=== PATIENT | female | born 1955 | race Caucasian/White ===

== ENCOUNTER → 2020-06-20 15:43 | Outpatient (CLI) | payer BC, SELFPAY ==
--- NOTE | ~2020-06-20 | CT_ITS ---
EXAMINATION: CT sinus wo con DATE: 06/20/2020 16:02 INDICATION: Congenital perforated nasal septum. TECHNIQUE: Computed tomography (CT) of the paranasal sinuses was performed without intravenous contra st. Iterative reconstruction technique was employed. The dose-length product was 274.70 mGy-cm. COMPARISON: None FINDINGS: The frontal, ethmoid, sphenoid, and right maxillary sinuses are normal. There is a 1.9 x 1. 5 cm mass in inferior left maxillary sinus with dehiscence of the anterior wall of the maxillary sinu s. The mass surrounds the roots of tooth 20. There is a leftward spur of the nasal septum posteriorly . There is a large perforation of the nasal septum. Mike cells are noted bilaterally. The ostiomeat al units are patent. IMPRESSION: 1. Mass in left maxillary sinus. The differential diagnosis includes periapical cyst, odontogenic ker atocyst, and ameloblastoma. 2. Perforation of the nasal septum. Reviewed, dictated and finalized at location A. NESS COMPUTERS TEACHER IMPRESSION: 1. Mass in left maxillary sinus. The differential diagnosis includes periapical cyst, odontogenic keratocyst, and ameloblastoma. 2. Perforation of the nasal septum.
== END ==
PROVIDERS: PCP Nurse Practitioner Psychiatric/Mental Health; Visit Provider Otolaryngology
DX: Q30.3 Congenital perforated nasal septum (principal); R93.0 Abnormal findings on diagnostic imaging of skull and head, not elsewhere classified
CPT/HCPCS: 70486

== ENCOUNTER 2024-10-07 08:42 | Emergency (ER) | payer OTHER, SELFPAY ==
--- OUTSIDE RECORDS SUMMARY | 2024-10-07 08:49 | XMS_ITS | Encounter Summary ---
Author Organization [facility] Address [address] [place] [address] Care Team Providers Care Assistant Professor Of Archaeology Name Role Phone Milagros Hernadez [facility] Primary Care Provider + Prosper Ontiveros MD Unavailable [phone] Theresa Prescott MD Unavailable [phone] Michel Rush MD Unavailable [phone] Liset Summers APRN Primary Care Provider [phone] Thomas Wick Primary Care Provider Encounter Details Date Type Department Care Team (Late st Contact Info) Description 01/29/[address] Message Enc [facility] Medical Group Family & Internal Medicine [address] [address] Milagros Hernadez [facility] [address] [place] [id number] message sent on 01/26/2023 Social History Tobacco Use Types Packs/Day Years Used Date Smoking Tobacco: Former Cigarettes 1.5 20 1 971 - 1990 Smokeless Tobacco: Never Comments:former smoker Alcohol Use Standard Drinks/Week Comments No 0 (1 standard drink = 0.6 oz pur e alcohol) AUDIT-C Answer Date Recorded Frequency of Alcohol Consumption Never 10/18/2018 Average Number of Drinks Not on file 019 Frequency of Binge Drinking Not on file 12/2018 PHQ-2 Answer Date Recorded Patient Health Questionnaire-2 Score 0 10/06/2022 Education Answer Date Recorded What is the highest level of school you have completed or the highest degree you have received? High school graduate 05/03/2019 Comments No Sex and Gender Information Value Date Recorded Sex Assigned at Female 05/03/2019 3:54 PM CDT Legal Sex Female 7:31 PM CDT Gender Identity Female 05/03/2019 3:54 PM CDT Sexual Orientation Straight 05/03/2019 3: 54 PM CDT Occupation Industry Job Start Date Job End Date Not on file Not on file Not on file Not on file COVID-19 Exposure Response Date Recorded In the last 10 days, have yo u been in contact with someone who was confirmed or suspected to have Coronavirus/COVID-19? No / Unsure 01/20/2023 12:36 PM CDT documented as of this encounter Functional Status * RETIRED Are you deaf or do you have serious difficulty hearing Answer Date of Assessment Author Status No 04/09/2021 2:06 PM CDT Activ e * RETIRED Are you blind or do you have serious difficulty seeing, even when wearing glasses? Answer Date of Assessment Author Status No 04/09/2021 2:06 PM CDT Activ e * Do you have serious difficulty walking or climbing stairs? Answer Date of Assessment Author Status No 04/09/2021 2:06 PM ROCKYT Palak Washington RN Active * Do you have difficulty dressing or bathing? Answer Date of Assessment Author Status No 04/09/2021 2:06 PM ROCKYT Palak Washington RN Active * Because of a physical, mental, or emotional condition, do you have difficulty doing errands alone such as visiting a doctor's office or shopping? Answer Date of Assessment Author Status No 04/09/2021 2:06 PM Palak Chand RN Active documented as of this encounter Mental Status * Because of a physical, mental, or emotional condition, do you have serious difficulty concentrating, remembering, or making decisions? Answer Entry Date Author Status No 04/09/2021 2:06 PM Palak Chand RN Active documented in this encounter Progress Notes * LADY Singleton - 01/30/2023 7:36 AM CDT Response sent to patient on 01/29/23. * Puja Johnston MA - 01/29/2023 9:51 AM CDT See mychart message from 01/26 documented in this encounter Plan of Treatment Upcoming Encounters Date Type Department Care Team (Late st Contact Info) Description 10/12/2024 1:20 PM PUMP AND STILL OPERATOR Office Visit [facility] Family & Internal [facility] [address] [place] [address] [place] [address] [place] [address] 11/23/2024 11:45 AM CDT [facility] [address] [place] [address] Michel Rush MD [address] [address] 11/28/2024 7:00 AM CDT Office Visit [facility] Family & Internal [facility] [address] [place] [address] [place] [address] [place] [address] documented as of this encounter Goals Goal Patient Goal Type Associated Problems Recent Progress Patient-Stated? Author Health - patient able to perform ADLs independently General No Evette Campuzano, RN documented as of this encounter Visit Diagnoses Not on filedocumented in this encounter Additional Health Concerns Infection Onset Date Last Indicated Resolved Time COVID-19 Rule Out 09/21/2024 09/21/2024 09/21/2024 7:37 AM PUMP AND STILL OPERATOR Assessment Noted Time PHQ-9 Depression Total Score: 14 023 11:01 AM PUMP AND STILL OPERATOR documented as of this encounter Care Teams Assistant Professor Of Archaeology Relationship Specialty Start Date End Date Milagros Hernadez [facility]- PCP - General Nurse Practitioner Family 10/06/22 05/25/23 Liset Summers APRN [address] [place], [place] [id number] PCP - General NURSE PRACTITIONER 05/26/23 12/13/23 [place] [address] [employer] [place], [place] [id number] PCP - General Physician [employer] 12/14/23 Prosper Ontiveros MD Physician Neurology Psychiatry 10/17/22 03/25/23 Theresa Prescott MD [address] [facility] [address] [place] [phone] RHEUMATOLOGY 10/17/22 Michel Rush MD [facility] [address] [place] [address] Consulting Physician CARDIOVASCULAR DISEASE 10/17/22 documented as of this encounter
--- OUTSIDE RECORDS SUMMARY | 2024-10-07 08:49 | XMS_ITS | Encounter Summary ---
Author Organization [facility] Healthcare Address [address] [place] [address] Care Team Providers Care Window Caser Name Role Phone Therese Anna NP Primary Care Provider [phone] Reason for Visit * Diagnostic Imaging (Routine) - Pending Review Specialty Diagnoses / Procedures Referred By Amelia watts Referred To Contact Procedures Breast Imaging Screening Outside Reference Transcribed Order, Provider Referral ID Status Reason Start Date Expiration Date V isits Requested Visits Authorized [id number] Pending Review 12/13/2023 01/11/2025 1 1 Encounter Details Date Type Department Care Team (Late st Contact Info) Description 07/25/2020 Hospital Encounter [facility] [address] [place] [address] Social History Tobacco Use Types Packs/Day Years Used Date Smoking Tobacco: Former Cigarettes 0.1 20 0 1971 - 1991 Smokeless Tobacco: Never Alcohol Use Standard Drinks/Week Comments Never 0 (1 standard drink = 0.6 oz pur e alcohol) AUDIT-C Answer Date Recorded Q1: How often do you have a drink containing alc ohol? Never 03/02/2023 Average Number of Drinks Not on file 023 Frequency of Binge Drinking Not on file 02/13 Personal Safety Answer Date Recorded Have you ever been in or are you currently in a harmful physical or emotional relationship or is someone making you feel afraid or unsafe? Denies 03/02/2023 Comments No Sex and Gender Information Value Date Recorded Sex Assigned at Not on file Legal Sex Female 12:16 AM GOVERNMENT GUARD Gender Identity Female 11/07/2022 9:55 AM CDT Sexual Orientation Straight 11/07/2022 9: 55 AM CDT Occupation Industry Job Start Date Job End Date unemployed Not on file Not on file Not on file documented as of this encounter Functional Status documented as of this encounter Plan of Treatment Not on file documented as of this encounter Procedures Procedure Name Priority Date/Time Associated Diagnosis Comments BREAST IMAGING MG SCREENING OUTSIDE REFERENCE Routine 07/25/2020 12:00 AM GOVERNMENT GUARD documented in this encounter Results * Breast Imaging Screening Outside Reference (07/25/2020 12:00 AM GOVERNMENT GUARD) Impressions [facility] - 12/13/2023 2:29 PM CDT These images are for Reference purposes only and have not been reviewed by [facility] Radiology. There will be no report generated by a [facility] Radiologist. Narrative [facility] - 12/13/2023 2:29 PM CDT EXAMINATION: Images For Reference Purposes Only us Provider Transcribed Order IMG MAMMO PROCEDURES Final Result [facility] documented in this encounter Visit Diagnoses Not on filedocumented in this encounter Care Teams Window Caser Relationship Specialty [place] [address] [address] [address] PCP - General Family Practice 11/04/18 02/14/23 documented as of this encounter
--- OUTSIDE RECORDS SUMMARY | 2024-10-07 08:49 | XMS_ITS | Encounter Summary ---
Author Organization [facility] Address [address] [place] [address] Phone Care Team Providers Care Milling Machine Operator Gear Name Role Phone Milagros Hernadez CASE CONSULTANT Unavailable [phone] Liset Summers CASE CONSULTANT Unavailable [phone] Diaz Keane MD Primary Care Provider [phone] Librado Corea MD Unavailable [phone] Encounter Details Date Type Department Care Team (Late st Contact Info) Description 10/03/2024 Results Follow-Up [facility] Dermatology [address] [place] [address] [address] [place] [phone] Haseeb Farrell MD PhD [address] [place] [address] Social History Tobacco Use Types Packs/Day Years [...] on file Legal Sex Female 12:16 AM ARCHITECTURAL MODELER Gender Identity Female 11/07/2022 9:55 AM CDT Sexual Orientation Straight 11/07/2022 9: 55 AM CDT Occupation Industry Job Start Date Job End Date unemployed Not on file Not on file Not on file documented as of this encounter Plan of Treatment Not on file documented as of this encounter Visit Diagnoses Not on filedocumented in this encounter Care Teams Milling Machine Operator Gear Relationship Specialty [place] [address] [place] [address] PCP - General Family Practice 12/09/23 Milagros Hernadez NP Nurse Practitioner Nurse Practitioner 10/07/22 [place] [address] [address] Nurse Practitioner 06/03/23 Librado Corea MD [address] [facility] [place] [address] Surgeon Orthopedic Surgery 12/23/23 documented as of this encounter
--- OUTSIDE RECORDS SUMMARY | 2024-10-07 08:49 | XMS_ITS | Encounter Summary ---
Author Organization [facility] Healthcare Address [address] [place] [address] Care Team Providers Care Dry Cell Tester Name Role Phone Therese Anna NP Primary Care Provider [phone] Milagros Hernadez COMMUNICATION CENTER COORDINATOR Unavailable [phone] Milagros Hernadez COMMUNICATION CENTER COORDINATOR Primary Care Provider [phone] Liset Summers COMMUNICATION CENTER COORDINATOR Unavailable [phone] Diaz Keane MD Primary Care Provider [phone] Librado Corea MD Unavailable [phone] Encounter Details Date Type Department Care Team (Late st Contact Info) Description 03/03/2021 Telephone [facility] [address] [place] [address] Wilmer Bhardwaj, RT Social History Tobacco Use Types Packs/Day Years Used Date Smoking Tobacco: Former Smokeless Tobacco: Never Alcohol Use Standard Drinks/Week Comments Never 0 (1 standard drink = 0.6 oz pur e alcohol) AUDIT-C Answer Date Recorded Q1: How often do you have a drink containing alc ohol? Never 04/26/2020 Average Number of Drinks Not on file 020 Frequency of Binge Drinking Not on file 04/16 Comments Unknown Sex and Gender Information Value Date Recorded Sex Assigned at Not on file Legal Sex Female 12:16 AM COLLEGE ARCHIVIST Gender Identity Female 11/07/2022 9:55 AM CDT Sexual Orientation Straight 11/07/2022 9: 55 AM CDT Occupation Industry Job Start Date Job End Date unemployed Not on file Not on file Not on file documented as of this encounter Plan of Treatment Not on file documented as of this encounter Visit Diagnoses Not on filedocumented in this encounter Care Teams Dry Cell Tester Relationship Specialty [place] [address] [facility] [address] [place] [address] PCP - General Family Practice 11/04/18 02/14/23 [place] [address] [address] PCP - General Nurse Practitioner 02/15/23 12/08/[address] [place] [address] [place] [address] PCP - General Family Practice 12/09/23 [place] [address] [address] Nurse Practitioner Nurse Practitioner 10/07/22 [place] [address] [address] Nurse Practitioner 06/03/23 Librado Corea MD [address] [facility] 6A/6B/12A [place] [address] Surgeon Orthopedic Surgery 12/23/23 documented as of this encounter
--- OUTSIDE RECORDS SUMMARY | 2024-10-07 08:49 | XMS_ITS | Encounter Summary ---
Author Organization [facility] Address [facility] [place] [address] Care Team Providers Care Electronic Equipment Trades Worker Name Role Phone Theresa Prescott MD Unavailable [phone] Michel Rush MD Unavailable [phone] Liset Summers APRN Primary Care Provider [phone] Thomas Wick Primary Care Provider [phone] Encounter Details Date Type Department Care Team (Late st Contact Info) Description 06/15/2023 [employer] Message Enc [facility] Medical Group General Surgery [address], [facility] [address] [place] [address] Onel Martinez MD [address] [address] Need a call back/service lacking the help I need Social History Tobacco Use Types Packs/Day Years Used Date Smoking Tobacco: Former Cigarettes 2 20.1 1 971 - 09/12/1990 Smokeless Tobacco: Never Comments:Smoked cigarettes a nd quit right around 1st back surgery. Alcohol Use Standard Drinks/Week Comments Yes 0 (1 standard drink = 0.6 oz pure alcohol) Beer drinker as young adult stopped driving 1990. AUDIT-C Answer Date Recorded Frequency of Alcohol [...] Author Status No 04/09/2021 2:06 PM CDT Palak Washington RN Active * Do you [...] 2:06 PM ROCKYT Palak Washington RN Active documented as of this encounter Mental Status * Because of a physical, mental, or emotional condition, do you have serious difficulty concentrating, remembering, or making decisions? Answer Entry Date Author Status No 04/09/2021 2:06 PM ROCKYT Palak Washington RN Active documented in this encounter Progress Notes * Ton Diaz MA - 06/16/2023 1:31 PM CDT Patient is coming in the office to picking belt operator the instructions. documented in this encounter Plan of Treatment Upcoming Encounters Date Type Department Care Team (Late st Contact Info) Description 10/12/2024 1:20 PM PAINTER HELPER SIGN Office Visit [facility] [address] [place] [address] [place] [address] [place], [place] [phone] 11/23/2024 11:45 AM CDT [facility] [address] [place] [address] Michel Rush MD [address] [address] 11/28/2024 7:00 AM CDT Office Visit [facility] [address] [place] [address] [place] [address] [place], [place] [phone] documented as of this encounter Goals Goal Patient Goal Type Associated Problems Recent Progress Patient-Stated? Author Health - patient able to perform ADLs independently General No Evette Campuzano RN documented as of this encounter Visit Diagnoses Not on filedocumented in this encounter Additional Health Concerns Infection Onset Date Last Indicated Resolved Time COVID-19 Rule Out 09/21/2024 09/21/2024 09/21/2024 7:37 AM PAINTER HELPER SIGN Assessment Noted Time PHQ-9 Depression Total Score: 14 023 11:01 AM PAINTER HELPER SIGN documented as of this encounter Care Teams Electronic Equipment Trades Worker Relationship Specialty Start Date End Date Liset Summers APRN [address] [address] PCP - General NURSE PRACTITIONER 05/26/23 12/13/23 [place] [address] [facility] [place] [address] PCP - General Physician Associate Professor Of Radiology Medical 12/14/23 Theresa Prescott MD 1011 [facility] [address] [place] [phone] RHEUMATOLOGY 10/17/22 Michel Rush MD [facility]. [address] [address] Consulting Physician CARDIOVASCULAR DISEASE 10/17/22 documented as of this encounter
--- OUTSIDE RECORDS SUMMARY | 2024-10-07 08:49 | XMS_ITS | Encounter Summary ---
Author Organization [facility] Address [address] [place] [address] Care Team Providers Care Accredited Legal Secretary Name Role Phone Milagros Hernadez [facility] Primary Care Provider + Prosper Ontiveros MD Unavailable [phone]- [phone] Theresa Prescott MD Unavailable [phone] Michel Rush MD Unavailable [phone] Liset Summers APRN Primary Care Provider [phone] Thomas Wick Primary Care Provider [phone] Encounter Details Date Type Department Care Team (Latest Contact Info) Description 11/12/2022 HEALTH CARE DATA[employer] Message Enc [facility] Medical Group Family & Internal Medicine [facility] [address] [place] [address] Milagros Hernadez [facility] [address] [place] [phone] Need a referral for a silo filler Social History Tobacco Use Types Packs/Day Years [...] suspected to have Coronavirus/COVID-19? No / Unsure 11/11/2022 8:12 AM CDT documented as of this encounter Functional [...] documented in this encounter Progress Notes * KARLA Singleton-BC - 11/15/2022 9:44 PM CDT Okay for referral. Please clarify dx with patient. * Destini Sorensen MA - 11/12/2022 10:43 AM CDT OK for referral? documented in this encounter Plan of Treatment Upcoming Encounters Date Type Department Care Team (Late st Contact Info) Description 10/12/2024 1:20 PM DESIGN EDITOR Office Visit [facility] Family & Internal [facility] [address] [place] [address] [place] [address] [place] [address] 11/23/2024 11:45 AM CDT Office Visit [facility] [address] [place] [address] Michel Rush MD [address] [address] 11/28/2024 7:00 AM CDT Office Visit [facility] Family & Internal [facility] [address] [place] [address] [place] [address] [place], [place] [id number] documented as of this encounter Goals Goal Patient Goal Type Associated Problems Recent Progress Patient-Stated? Author Health - patient able to perform ADLs independently General No Evette Campuzano RN documented as of this encounter Visit Diagnoses Not on filedocumented in this encounter Additional Health Concerns Infection Onset Date Last Indicated Resolved Time COVID-19 Rule Out 09/21/2024 09/21/2024 09/21/2024 7:37 AM DESIGN EDITOR Assessment Noted Time PHQ-9 Depression Total Score: 14 023 11:01 AM DESIGN EDITOR documented as of this encounter Care Teams Accredited Legal Secretary Relationship Specialty Start Date End Date Milagros Hernadez [facility]- PCP - General Nurse Practitioner Family 10/06/22 05/25/23 Liset Summers APRN [address] [facility] [address] [place], [place] [phone] PCP - General NURSE PRACTITIONER 05/26/23 12/13/23 [place] [address] [place], [place] [phone] PCP - General Physician Fire Regulator Medical 12/14/23 Prosper Ontiveros MD Physician Neurology Psychiatry 10/17/22 03/25/23 Theresa Prescott MD 101[address] [facility] [address] [place] [phone] RHEUMATOLOGY 10/17/22 Michel Rush MD [address] [address] Consulting Physician CARDIOVASCULAR DISEASE 10/17/22 documented as of this encounter
--- OUTSIDE RECORDS SUMMARY | 2024-10-07 08:49 | XMS_ITS | Encounter Summary ---
Author Organization [facility] Healthcare Address [address] [place] [address] Care Team Providers Care Side Panel Padder Name Role Phone Therese Anna NP Primary Care Provider [phone] Milagros Hernadez FUNCTIONAL ARCHITECT Unavailable [phone] Milagros Hernadez FUNCTIONAL ARCHITECT Primary Care Provider [phone] Liset Summers FUNCTIONAL ARCHITECT Unavailable [phone] Diaz Keane MD Primary Care Provider [phone]- [phone] Librado Corea MD Unavailable [phone] Encounter Details Date Type Department Care Team (Late st Contact Info) Description 02/28/2021 Telephone [facility] [place] [address] Fang Holbrook, Social History Tobacco Use Types Packs/Day Years [...] on file Legal Sex Female 12:16 AM SHIPPING AND RECEIVING OPERATOR Gender Identity Female 11/07/2022 9:55 AM CDT Sexual Orientation Straight 11/07/2022 9: 55 AM CDT Occupation Industry Job Start Date Job End Date unemployed Not on file Not on file Not on file documented as of this encounter Plan of Treatment Not on file documented as of this encounter Visit Diagnoses Not on filedocumented in this encounter Care Teams Side Panel Padder Relationship Specialty [place] [address] [facility] [address] [place] [address] PCP - General Family Practice 11/04/18 02/14/23 [place] [address] [address] PCP - General Nurse Practitioner 02/15/23 12/08/23 [place] [address] [facility] [place] [address] PCP - General Family Practice 12/09/23 [place] [address] [address] Nurse Practitioner Nurse Practitioner 10/07/22 [place] [address] [address] Nurse Practitioner 06/03/23 Librado Corea MD [address] [facility] 6A/6B/12A [place] [address] Surgeon Orthopedic Surgery 12/23/23 documented as of this encounter
--- OUTSIDE RECORDS SUMMARY | 2024-10-07 08:49 | XMS_ITS | Encounter Summary ---
Author Organization [facility] Address Formerly [facility], [facility] [place] [address] Care Team Providers Care Eeo Officer Name Role Phone Theresa Prescott MD Unavailable [phone] Michel Rush MD Unavailable [phone] Liset Summers APRN Primary Care Provider [phone] Thomas Wick Primary Care Provider [phone] Encounter Details Date Type Department Care Team (Late st Contact Info) Description 06/28/2023 [facility] Message Enc [facility] [address] [place] [address] [place], [facility] Provider Call us ESTEFANIA regarding her Colonoscopy Social History Tobacco Use Types Packs/Day Years [...] 3:54 PM CDT Sexual Orientation Straight 05/03/2019 3 :54 PM CDT Occupation Industry Job Start Date [...] Chand RN Active documented in this encounter Plan of Treatment Upcoming Encounters Date Type Department Care Team (Late st Contact Info) Description 10/12/2024 1:20 PM LINING BRUSHER Office Visit [facility] Family & Internal Medicine - [place] [address] [place] [address] [place] [address] [place] [address] 11/23/2024 11:45 AM CDT [facility] [address] [place] [address] Michel Rush MD Three [facility]. [facility] [address] [place] [address] 11/28/2024 7:00 AM CDT Office Visit [facility] Family & Internal Medicine - [place] [address] [place] [address] [place] [address] [place] [address] documented as of this encounter Goals Goal Patient Goal Type Associated Problems Recent Progress Patient-Stated? Author Health - patient able to perform ADLs independently General No Evette Campuzano RN documented as of this encounter Visit Diagnoses Not on filedocumented in this encounter Additional Health Concerns Infection Onset Date Last Indicated Resolved Time COVID-19 Rule Out 09/21/2024 09/21/2024 09/21/2024 7:37 AM LINING BRUSHER Assessment Noted Time PHQ-9 Depression Total Score: 14 023 11:01 AM LINING BRUSHER documented as of this encounter Care Teams Eeo Officer Relationship Specialty Start Date End Date Liset Summers APRN [address] [facility] [address] [place] [address] PCP - General NURSE PRACTITIONER 05/26/23 12/13/23 [place] [address] [place] [address] PCP - General Physician Swimming Coach Medical 12/14/23 Theresa Prescott MD [address] [facility] [address] [id number] RHEUMATOLOGY 10/17/22 Michel Rush MD [facility]. [address] [address] Consulting Physician CARDIOVASCULAR DISEASE 10/17/22 documented as of this encounter
--- OUTSIDE RECORDS SUMMARY | 2024-10-07 08:49 | XMS_ITS | Referral Summary ---
Author Organization [facility] Address [address] [place] [address] Care Team Providers Care Larry Operator Name Role Phone Milagros Hernadez QUALITY ENGINEERING MANAGER Unavailable [phone] Liset Summers QUALITY ENGINEERING MANAGER Unavailable [phone] Diaz Keane MD Primary Care Provider [phone] Librado Corea MD Unavailable [phone] Encounters Date Type Department Care Team Description 10/03/2024 Results Follow-Up [facility] Dermatology [address] [place] [address] [address] [place] [address] Haseeb Farrell MD PhD 09/29/2024 Orders Only [facility] [address] [place] [address] Haseeb Farrell MD PhD Neoplasm of unspecified behavior of bone, soft tissue, and skin 09/28/2024 1:15 PM PERFORMANCE IMPROVEMENT ANALYST Office Visit [facility] Dermatology [facility] Floor [address] [place] [address] Haseeb Farrell MD PhD Neoplasm of unspecified behavior of bone, soft tissue, and skin (Primary Dx); Actinic keratosis; Seborrheic keratosis; Barker angioma from Last 3 Months Allergies Active Allergy Reactions Criticality Noted Date Comments Codeine Nausea & Vomiting Low Unclassified Drug Rash Medium 02/04/2023 States had rash associated with the medicine ball she had with her shoulder surgery. Medications Ns-[id number]-dst-zinc- hrd-ccnj-gcuak (Caltrate 600-D Plus Minerals) 600 mg calcium- 800 unit-40 mg tablet,chewable Indications:Vit fitzpatrick D Deficiency Take 1 each by mouth 2 (two) times a day 12/08/2019 Active pramipexole (MIRAPEX) 0.125 mg tabletIndicatio ns:Restless Legs Syndrome Take 1 tablet (0.125 mg total) by mouth 3 (three) times a day 03/01/[address] (CYMBALTA) 30 mg capsuleIndicati ons:Fibromyalgi a,Neuropathic Pain Take 1 capsule (30 mg total) by mouth daily after lunch 10/06/[address] (CYMBALTA) 60 mg capsuleIndicati ons:Fibromyalgi a,Neuropathic Pain Take 1 capsule (60 mg total) by mouth nightly 01/21/2022 Active methocarbamoL (ROBAXIN) 500 mg tablet Take 1 tablet (500 mg total) by mouth 4 (four) times a day as needed for muscle spasms 10/01/2022 Active traZODone (DESYREL) 100 mg tabletIndicatio ns:insomnia associated with depression Take 1 tablet (100 mg total) by mouth nightly 10/06/2022 Active atorvastatin (LIPITOR) 40 mg tabletIndicatio ns:hyperlipidem ia Take 1 tablet (40 mg total) by mouth nightly 01/25/2023 Active aspirin 81 mg enteric coated tablet Take 1 tablet (81 mg total) by mouth 2 (two) times a day 60 tablet 03/02/2023 Active meloxicam (MOBIC) 7.5 mg tablet Take 1 tablet (7.5 mg total) by mouth daily 30 tablet 03/02/2023 Active traMADoL (ULTRAM) 50 mg tablet TAKE 1 TABLET BY MOUTH EVERY 8 HOURS NEEDED FOR PAIN (1ST LINE) 42 tablet 04/27/2023 Active gabapentin (NEURONTIN) 300 mg capsule Take 1 capsule (300 mg total) by mouth 3 (three) times a day 10/30/2023 Active alendronate (FOSAMAX) 70 mg tablet 12/21/2023 Active hydrocortisone 2.5 % cream 12/21/2023 Active metoprolol XL (TOPROL-XL) 25 mg extended release tablet Take 1 tablet (25 mg total) by mouth daily Active Active Problems Problem Noted Date Diagnosed Date Coronary artery disease invo lving [place] coronary artery of [place] heart without angina pectoris 03/03/2023 HTN (hypertension) 02/25/2023 HLD (hyperlipidemia) 02/25/2023 COPD (chronic obstructive pulmonary disease) Primary osteoarthritis of right knee 12/09/2022 Other osteoporosis without current pathological fracture 11/04/2022 Fibromyalgia 10/17/2022 Chronic non-specific white matter lesions on MRI 10/17/2022 Hyperreflexia 10/17/2022 Neuropathy 10/17/2022 Primary insomnia 10/17/2022 Primary osteoarthritis involving multiple joints 10/17/2022 Chronic pain of both knees 05/07/2022 Depression 05/13/2018 Restless leg syndrome 05/13/2018 Cervicalgia 02/24/2017 Lumbago 02/24/2017 Thoracic spine pain 02/24/2017 Generalized anxiety disorder 08/11/2013 Bursitis of hip 05/31/2013 Knee pain 05/31/2013 Arthralgia of shoulder 05/31/2013 Traumatic arthritis of ankle 07/15/2012 Arthralgia of ankle 04/21/2012 Acquired kyphosis 09/17/2009 Scoliosis 09/17/2009 Immunizations Immunization Administration Dates Next Due Influenza, Quadrivalent, Hig h Dose, Preservative Free, Intrr 10/06/2022 Influenza, Quadrivalent, Spl it, Preservative Free, Intramuscular 06/03/2020,05/13/2018,06/20/2015 Influenza, Trivalent, IM (MDV) 08/24/2012 Influenza, Unspecified 06/14/2014 Pneumococcal Conjugate PCV 13 06/03/2020 Pneumococcal Polysaccharide PPV23 10/06/2022 Social History Tobacco Use Types Packs/Day Years Used Date Smoking Tobacco: Former Cigarettes 0.1 20 0 1971 - 1991 Smokeless Tobacco: Never Tobacco Cessation:Counseling Given: Not Answered Alcohol Use Standard Drinks/Week Comments Never 0 [...] on file Legal Sex Female 12:16 AM PERFORMANCE IMPROVEMENT ANALYST Gender Identity Female 11/07/2022 9:55 AM CDT Sexual Orientation Straight 11/07/2022 9: 55 AM CDT Occupation Industry Job Start Date Job End Date unemployed Not on file Not on file Not on file Last Filed Vital Signs Vital Sign Reading Time Taken Comments Blood Pressure 161/52 06/13/2024 3:03 PM CDT Pulse 78 06/13/2024 3:03 PM CDT Temperature 36.2 C (97.2 F) 03/02/2023 8:40 AM CDT Respiratory Rate 20 06/13/2024 3:03 PM CDT Oxygen Saturation 91% 03/02/2023 10:20 AM CDT Inhaled Oxygen Concentration - - Weight 91.2 kg (201 lb) 12/23/2023 7:52 AM CDT Height 160 cm (5' 3 ) 12/23/2023 7:52 AM CDT Body Mass Index 35.61 12/23/2023 7:52 AM CDT Plan of Treatment Not on file Medical Devices Implanted Type Area Hospice Registered Nurse Device Identifier Shelf Expiration Date Model / Serial / Lot [employer] Smartset Medium Viscosity Cement 40gm Bone Gentamicin [id number] - Sna - [id number] Implanted:Qty: 1 on 03/02/2023 by Pelon Guardado MD at [facility] Bone Cement Right: Knee [employer] 02/13/2024 [id number] / NA / [id number] [employer] Smartset Medium Viscosity Cement 40gm Bone Sterile 3122-040 - [id number] Implanted:Qty: 1 on 03/02/2023 by Pelon Guardado MD at [facility] Bone Cement Right: Knee [employer] 09/15/2024 [id number] / / [id number] [employer] Attune S+ Cement Fix Bearing Knee 4 Baseplate Tibial [id number] - Sna - [id number] Implanted:Qty: 1 on 03/02/2023 by Pelon Guardado MD at [facility] Other - see comments Right: Knee [employer] [id number] 01/13/2033 [id number] / NA / [id number] Description:Implant pause pe rformed prior to implant being opened to sterile field. Attune Tibial Insert Fixed Bearing Medial Stabilized Implanted:Qty: 1 on 03/02/2023 by Pelon Guardado MD at [facility] Other - see comments Right: Knee [employer] [id number] 08/15/2030 [id number] / NA / [id number] Description:Implant pause pe rformed prior to implant being opened to sterile field. Flagged 03/03 621. LD [employer] Attune Cemented Cruciate Retaining Knee Right 4 Component Femoral [id number] - Sna - [id number] Implanted:Qty: 1 on 03/02/2023 by Pelon Guardado MD at [facility] Other - see comments Right: Knee [employer] [id number] 03/15/2032 [id number] / NA / [id number] Description:Implant pause pe rformed prior to implant being opened to sterile field. Rods N/A: Back Procedures Procedure Name Priority Date/Time Associated Diagnosis Comments SURGICAL PATHOLOGY Routine 09/28/2024 12:00 AM PERFORMANCE IMPROVEMENT ANALYST Neoplasm of unspecified behavior of bone, soft tissue, and skin SCREENING MAMMOGRAM BILATERAL W ABAD Schedule Routine, Read Routine (OP Routine) 12/16/2023 7:50 AM CDT Screening mammogram, encounter for from Last 3 Months or Most Recently Relevant to Health Maintenance Results * Surgical pathology (09/28/2024 12:00 AM PERFORMANCE IMPROVEMENT ANALYST) Tissue (Skin, shave biopsy) 09/28/2024 09/29/2024 7:55 AM PERFORMANCE IMPROVEMENT ANALYST Narrative [facility] - 10/02/2024 4:19 PM PERFORMANCE IMPROVEMENT ANALYST EPIC results best viewed via link to PDF [facility] [address] [place] [address] [address], [place] [address] [email or web address] Note to Patients: This report may contain a detailed description of human tissue sent by a health care provider to the laboratory for pathologic evaluation. The content of this report is essential for diagnosis and may provide important critical findings. This information may be unfamiliar to patients to review without a medical professional present. It is advised that the patient review this report in the presence of a health care provider who can answer questions and explain the details. FINAL REPORT Patient Information: PATIENT NAME: KHUSHBU VARNER SEX: F : 1955 (Age: 69) Specimen Information: COLLECTED: 09/28/2024 RECEIVED: 09/29/2024 REPORTED: 10/02/2024 Submitting Physician Information: Haseeb Farrell MD PhD [address] [facility], [address] [place] [id number] , DERMATOPATHOLOGY REPORT RESULTS DIAGNOSIS: SKIN, RIGHT ANTERIOR THIGH, SHAVE BIOPSY: BASAL CELL CARCINOMA, SUPERFICIAL spng/spng By this signature, I attest that the above diagnosis is based upon my personal examination of the slides(and/or other material indicated in the diagnosis). Haseeb Farrell MD, PhD Report Electronically Reviewed and Signed Out By Haseeb Farrell MD, PhD 10/02/2024 16:19:42 CLINICAL INFORMATION RUBBED NEVUS R/O ATYPIA SPECIMEN DATA MICROSCOPIC DESCRIPTION: Emanating from the undersurface of the epidermis there are aggregates of atypical basal epithelial cells with palisading of their peripheral nuclei. (C44.91) GROSS DESCRIPTION: Received in a formalin-containing bottle is a superficial fragment of pale nieves, finely scaling, and semi-translucent skin measuring 1.1 by 0.7 by 0.1 cm. The surgical margin is inked blue. The specimen is sectioned into 3 pieces and submitted entirely in a single cassette. Due to shrinkage, measurements may be different than those at the time of procedure. sxt/mxf ICD-9 A; ZSD.176 Clerical Data A; 63290 The characteristics of special, immunohistochemical, and immunofluorescence stains and in-situ hybridization tests performed by the [facility] were deemed acceptable in ongoing quality systems specialist measures and in compliance with regulations drawn from the Clinical Laboratory Improvement Act vi2385 (CLIA '88). Control reactions for all stains performed were deemed adequate and appropriate by a pathologist prior to evaluation of patient tissue. Some diagnoses were rendered with the assistance of laboratory-developed tests utilizing analyte-specific reagents; the performance characteristic of these tests were determined by [facility] and are not cleared or approved by the [place] Food an Drug administration. Laboratory developed test may only be performed in a facility that is certified by the [facility] as a high-complexity laboratory under CLIA '88. These tests are used for clinical purposes and are not investigational. Haseeb Farrell MD PhD LAB PATHOLOGY ORDERABLES Final Result [facility] [address] [place] [id number] * Screening Mammogram Bilateral W Abad (12/16/2023 7:50 AM CDT) Anatomical Region Laterality Modality Breast Bilateral Mammography Narrative 12/17/2023 3:01 PM CDT Mammogram Technique: Bilateral Digital Breast Tomosynthesis, Bilateral C-view 2D Screening mammogram. Views obtained: bilateral craniocaudal and bilateral mediolateral oblique. Computer Aided Detection was performed. Mammogram Findings: The present examination has been compared to prior imaging studies performed at [place], [place] on 07/25/2020 and 10/28/2022. The breasts are almost entirely fatty. There is no suspicious abnormality in either breast. Impression: There is no mammographic evidence of malignancy. Annual screening mammography is recommended. OVERALL FINAL ASSESSMENT: BI-RADS CATEGORY 1: Negative. Procedure Note Mari Benitez MD - 12/17/2023 Mammogram Technique: Bilateral Digital Breast Tomosynthesis, Bilateral C-view 2D Screening mammogram. Views obtained: bilateral craniocaudal and bilateral mediolateral oblique. Computer Aided Detection was performed. Mammogram Findings: The present examination has been compared to prior imaging studies performed at [place], [place] on 07/25/2020 and 10/28/2022. The breasts are almost entirely fatty. There is no suspicious abnormality in either breast. Impression: There is no mammographic evidence of malignancy. Annual screening mammography is recommended. OVERALL FINAL ASSESSMENT: BI-RADS CATEGORY 1: Negative. us Self Screening Mammogram IMG MAMMO PROCEDURES Fi nal Result from Last 3 Months or Most Recently Relevant to Health Maintenance Insurance [employer] [facility] CHOICE O [employer] CHOICE PPO Care Teams Larry Operator Relationship Specialty [place] [address] [place] [address] PCP - General Family Practice 12/09/23 Milagros Hernadez NP Nurse Practitioner Nurse Practitioner 10/07/22 [place] [address] [address] Nurse Practitioner 06/03/23 Librado Corea MD [address] [facility] [address]6B[address] [place] [address] Surgeon Orthopedic Surgery 12/23/23
--- OUTSIDE RECORDS SUMMARY | 2024-10-07 08:49 | XMS_ITS | Clinical Summary ---
Author Organization [facility] Address [address] [place] [address] Care Team Providers Care Polymerization Kettle Operator Name Role Phone Milagros Hernadez TEST MAN Unavailable [phone] Liset Summers NP Unavailable [phone] Diaz Keane MD Primary Care Provider [phone] Librado Corea MD Unavailable [phone] Allergies Active Allergy Reactions Criticality Noted Date Comments Codeine Nausea & Vomiting Low Unclassified Drug Rash Medium 02/04/2023 States had rash associated with the medicine ball she had with her shoulder surgery. Medications Kj-Q1-cwq-zinc- irw-hxep-yfrcz (Caltrate 600-D Plus Minerals) 600 mg calcium- [...] Diagnosed Date Coronary artery disease invo lving [place] coronary artery of [place] heart without angina pectoris 03/03/2023 HTN (hypertension) [...] ankle 04/21/2012 Acquired kyphosis 09/17/2009 Scoliosis 09/17/2009 Encounters Date Type Department Care Team Description 10/03/2024 Results Follow-Up [facility] Dermatology [address] [place] [address] Haseeb Farrell MD PhD 09/29/2024 Orders Only [facility] [address] [place] [address] Haseeb Farrell MD PhD Neoplasm of unspecified behavior of bone, soft tissue, and skin 09/28/2024 1:15 PM DITCH WORKER Office Visit [facility] Dermatology [facility] Floor [address] [place] [address] Haseeb Farrell MD PhD Neoplasm of unspecified behavior of bone, soft tissue, and skin (Primary Dx); Actinic keratosis; Seborrheic keratosis; Barker angioma from Last 3 Months Immunizations Immunization Administration Dates Next Due Influenza, Quadrivalent, Hig h Dose, Preservative Free, Intrr 10/06/2022 Influenza, Quadrivalent, Spl it, Preservative Free, Intramuscular 06/03/2020,05/13/2018,06/20/2015 Influenza, Trivalent, IM (MDV) 08/24/2012 Influenza, Unspecified 06/14/2014 Pneumococcal Conjugate PCV 13 06/03/2020 Pneumococcal Polysaccharide PPV23 10/06/2022 Surgical History Surgery Date Site/Laterality Comments FLUORO GUIDED INJECTION ANKLE LEFT 01/16/2020 Left FLUORO GUIDED INJECTION ANKLE LEFT 07/29/2020 Left FLUORO GUIDED INJECTION ANKLE LEFT 03/03/2021 Left JOINT REPLACEMENT SPINE SURGERY KNEE SURGERY IR INJECTION ARTHROGRAM SI J OINT BILATERAL WITH GUIDANCE 02/08/2024 Bilateral IR INJECTION ARTHROGRAM SI J OINT BILATERAL WITH GUIDANCE 06/13/2024 Bilateral Medical History Medical History Date Comments Depression Arthritis Hyperlipidemia Motion sickness Anxiety Dec 16 2022 Cancer (CMS/HCC) (HCC) Precancer face / knuckle / leg Neuromuscular disorder (HCC) March 2021 Infection 1981 HLD (hyperlipidemia) 02/25/2023 Family History Medical History Relation Name Comments Alcohol abuse Brother 1 Ivan Schmid Alzheimer's disease Brother 2 Kenyon Schmid Cancer Father Crispin Schmid Family h istory of malignant neoplasm - (Added by TW Conv) Arthritis Mother Keyonna harrell Pamela Binu Bleeding Disorder Mother Keyonna Sands right Pamela Binu Cancer Mother Keyonna Briseno ght Pamela Binu Heart disease Mother Keyonna Briseno ght Pamela Binu Family history of cardiac disorder - (Added by TW Conv) Hypertension Mother Keyonna Briseno ght Pamela Binu Family history of hypertension - (Added by TW Conv) Kidney disease Mother Keyonna Briseno ght Pamela Binu Family history of kidney disease - (Added by TW Conv) Miscarriages / Stillbirths Mother Ryan Gong Pamela Binu Obesity Mother Keyonna Briseno ghstefanie Pamela Binu Rashes / Skin problems Mother Keyonna Gong Pamela Binu Alcohol abuse Sister 1 Bonnie Schmid Obesity Sister 2 Evette Olvera Duyriddhi Binu Anesthesia problems Neg Hx Malig Hypertension Neg Hx Malig Hyperthermia Neg Hx Pseudochol deficiency Neg Hx Relation Name Status Comments Brother 1 Ivan Schmid Brother 2 Kenyon Schmid Father Crispin Schmid Mother Keyonna Gong Pamela Binu Sister 1 Bonnie Schmid Sister 2 Evette Olvera Duyriddhi Binu Social History Tobacco Use Types Packs/Day Years [...] on file Legal Sex Female 12:16 AM DITCH WORKER Gender Identity Female 11/07/2022 9:55 AM CDT Sexual Orientation Straight 11/07/2022 9: 55 AM CDT Occupation Industry Job Start Date Job End Date unemployed Not on file Not on file Not on file Obstetrics History Last Filed Vital Signs Vital Sign Reading [...] 12/23/2023 7:52 AM CDT Plan of Treatment Health Maintenance Due Date Last Done Comments Colon Cancer Screening-Colonoscopy 1955 Depression Screening 1955 Hepatitis C Screening 1955 DTaP/Tdap/Td Vaccine (1 - Tdap) 1967 Hepatitis B Screening 1974 Well Visit 65+ 2021 Fall Risk Assessment 03/02/2024 03/02/2023 Covid-19 Vaccine (3 - 2023-2 5 season) 2024 06/20/2021, 05/05/2021 Osteoporosis Screening-Bone Density Scan 10/28/2024 10/28/2022 Breast Cancer Screening-Mammogram 12/15/2024 12/16/2023, 10/28/2022, 10/28/2022, Additional history exists Pneumococcal vaccine 65+ Completed 10/06/2022, 05/16 Zoster Vaccine Completed 09/28/2023, 08/17, 07/15/2023 Influenza Vaccine Completed 08/29/2024, , 10/06/2022, Additional history exists Medical Devices Implanted Type Area Reproduction Machine Loader Device Identifier Shelf Expiration Date Model / Serial / Lot Dep [employer] Smartset Medium Viscosity Cement 40gm Bone Gentamicin [id number] - Sna - [id number] Implanted:Qty: 1 on 03/02/2023 by Pelon Guardado MD at [facility] Bone Cement Right: Knee [employer]uy [employer] 02/13/2024 [id number] / NA / [id number] [employer] Smartset Medium Viscosity Cement 40gm Bone Sterile 3122-040 - [id number] Implanted:Qty: 1 on 03/02/2023 by Pelon Guardado MD at [facility] Bone Cement Right: Knee [employer] 09/15/2024 [id number] / / [id number] [employer] Attune S+ Cement Fix Bearing Knee 4 Baseplate Tibial [id number] - Sna - [id number] Implanted:Qty: 1 on 03/02/2023 by Pelon Guardado MD at [facility] Other - see comments Right: Knee [employer] [id number] 01/13/2033 [id number] / NA / [id number] Description:Implant pause pe rformed prior to implant being opened to sterile field. Attune Tibial Insert Fixed Bearing Medial Stabilized Implanted:Qty: 1 on 03/02/2023 by Pelon Guardado MD at [facility] Other - see comments Right: Knee [employer] [id number] 08/15/2030 1520-20-414 / NA / [id number] Description:Implant pause pe rformed prior to implant being opened to sterile field. Flagged 03/03 621. LD [employer] Attune Cemented Cruciate Retaining Knee Right 4 Component Femoral [id number] - Sna - [id number] Implanted:Qty: 1 on 03/02/2023 by Pelon Guardado MD at [facility] Other - see comments Right: Knee [employer] [id number] 03/15/2032 [id number] / NA / [id number] Description:Implant pause pe rformed prior to implant being opened to sterile field. Rods N/A: Back Procedures Procedure Name Priority Date/Time Associated Diagnosis Comments SURGICAL PATHOLOGY Routine 09/28/2024 12:00 AM DITCH WORKER Neoplasm of unspecified behavior of bone, soft tissue, and skin SCREENING MAMMOGRAM BILATERAL W ABAD Schedule Routine, Read Routine (OP Routine) 12/16/2023 7:50 AM CDT Screening mammogram, encounter for from Last 3 Months or Most Recently Relevant to Health Maintenance Results * Surgical pathology (09/28/2024 12:00 AM DITCH WORKER) Tissue (Skin, shave biopsy) 09/28/2024 09/29/2024 7:55 AM DITCH WORKER [facility] - 10/02/2024 4:19 PM DITCH WORKER EPIC results best viewed via link to PDF [facility] Dermatopathology [place] [id number] [facility], [address], [place] [address] [email or web address] Note to Patients: This report may contain [...] FINAL REPORT Patient Information: PATIENT NAME: KHUSHBU GOODE SEX: F : 1955 (Age: 69) Specimen Information: COLLECTED: 09/28/2024 RECEIVED: 09/29/2024 REPORTED: 10/02/2024 Submitting Physician Information: Haseeb Farrell MD PhD [address] [facility] , [place] [address] , DERMATOPATHOLOGY REPORT RESULTS DIAGNOSIS: SKIN, RIGHT [...] sxt/mxf ICD-9 A; ZSD.176 Clerical Data A; 99253 The characteristics of special, immunohistochemical, and immunofluorescence stains and in-situ hybridization tests performed by the [facility] were deemed acceptable in ongoing business quality assurance analyst measures and in compliance with regulations drawn from the Clinical Laboratory Improvement Act xc5488 (CLIA '88). Control reactions for all stains performed were deemed adequate and appropriate by a pathologist prior to evaluation of patient tissue. Some diagnoses were rendered with the assistance of laboratory-developed tests utilizing analyte-specific reagents; the performance characteristic of these tests were determined by [facility] and are not cleared or approved by the [place] Food an Drug administration. Laboratory developed test may only be performed in a facility that is certified by the [facility] as a high-complexity laboratory under CLIA '88. These tests are used for clinical purposes and are not investigational. Haseeb Farrell MD PhD LAB PATHOLOGY ORDERABLES Final Result [facility] [address] [place] [address] * Screening Mammogram Bilateral W Abad (12/16/2023 7:50 AM CDT) Anatomical Region Laterality Modality Breast Bilateral Mammography Narrative 12/17/2023 3:01 PM CDT Mammogram Technique: Bilateral Digital Breast Tomosynthesis, Bilateral C-view 2D Screening mammogram. Views obtained: bilateral craniocaudal and bilateral mediolateral oblique. Computer Aided Detection was performed. Mammogram Findings: The present examination has been compared to prior imaging studies performed at [place], [place] on 07/25/2020 and 10/28/2022. The breasts [...] compared to prior imaging studies performed at [place], [place] on 07/25/2020 and 10/28/2022. The breasts are almost entirely fatty. There is no suspicious abnormality in either breast. Impression: There is no mammographic evidence of malignancy. Annual screening mammography is recommended. OVERALL FINAL ASSESSMENT: BI-RADS CATEGORY 1: Negative. us Self Screening Mammogram IMG MAMMO PROCEDURES Fi nal Result from Last 3 Months or Most Recently Relevant to Health Maintenance Insurance [facility] [employer] ADVANTAGE CHOICE PPO Member Subscriber Plan / Payer (Ef fective 2023-Present) Name:Khushbu Goode Relation to Subscriber:Self Name:Khushbu Goode Payer ID:[id number] (NAIC) Type:MEDICARE RISK OTHER Address: [place] [id number] [employer] ADVANTAGE CHOICE PPO Member Subscriber Plan / Payer (Ef fective 2023-Present) Name:Khushbu Goode Relation to Subscriber:Self Name:Khushbu Goode Payer ID:[id number] (NAIC) Type:MEDICARE RISK OTHER Address: [place] [id number] Care Teams Polymerization Kettle Operator Relationship Specialty [place] [address] [place] [address] PCP - General Family Practice 12/09/23 Milagros Hernadez NP Nurse Practitioner Nurse Practitioner 10/07/22 [place] [address] [address] Nurse Practitioner 06/03/23 [place] [address] [place] [address]/[address] [place] [address] Surgeon Orthopedic Surgery 12/23/23
--- OUTSIDE RECORDS SUMMARY | 2024-10-07 08:49 | XMS_ITS | Encounter Summary ---
Author Organization [facility] Address [address] [place] [address] Care Team Providers Care Recreation Establishment Manager Name Role Phone Milagros Hernadez [facility] Primary Care Provider + Prosper Ontiveros MD Unavailable [phone] Theresa Prescott MD Unavailable [phone] Michel Rush MD Unavailable [phone] Liset Summers APRN Primary Care Provider [phone] Thomas Wick Primary Care Provider Encounter Details Date Type Department Care Team (Late st Contact Info) Description 01/26/2023 [employer] Message Enc [facility] Family & Internal Medicine [facility] [address] [place] [address] Milagros Hernadez [facility] [address] [place] [phone] Need referrals / Updates on Social History Tobacco Use Types Packs/Day Years [...] in this encounter Progress Notes * KARLA Singleton-MICHAEL - 01/29/2023 9:51 AM CDT Okay for extension on referrals. * Puja Johnston MA - 01/26/2023 1:00 PM CDT Ok for extension? documented in this encounter Plan of Treatment Upcoming Encounters Date Type Department Care Team (Late st Contact Info) Description 10/12/2024 1:20 PM HL7 INTERFACE DEVELOPER Office Visit [facility] Family & Internal [facility] [address] [place] [address] [place] [address] [place], [place] [id number] 11/23/2024 11:45 AM CDT [facility] [address] [place] [address] Michel Rush MD [address] [address] 11/28/2024 7:00 AM CDT Office Visit [facility] Family & Internal [facility] [address] [place] [address] [place] [address] [place], [place] [id number] documented as of this encounter Goals Goal Patient Goal Type Associated Problems Recent Progress Patient-Stated? Author Health - patient able to perform ADLs independently General Evette Hampton, RN documented as of this encounter Visit Diagnoses Not on filedocumented in this encounter Additional Health Concerns Infection Onset Date Last Indicated Resolved Time COVID-19 Rule Out 09/21/2024 09/21/2024 09/21/2024 7:37 AM HL7 INTERFACE DEVELOPER Assessment Noted Time PHQ-9 Depression Total Score: 14 023 11:01 AM HL7 INTERFACE DEVELOPER documented as of this encounter Care Teams Recreation Establishment Manager Relationship Specialty Start Date End Date Milagros HernadezMILYP- PCP - General Nurse Practitioner Family 10/06/22 05/25/23 Liset Summers APRN [address] [facility] [address] [place], [place] [id number] PCP - General NURSE PRACTITIONER 05/26/23 12/13/23 [place] [address] [facility] [place] [id number] PCP - General Physician Control Systems Specialist Medical 12/14/23 Prosper Ontiveros MD Physician Neurology Psychiatry 10/17/22 03/25/23 Theresa Prescott MD [address] [facility] [address] [place] [address] RHEUMATOLOGY 10/17/22 Michel Rush MD [address] [address] Consulting Physician CARDIOVASCULAR DISEASE 10/17/22 documented as of this encounter
--- OUTSIDE RECORDS SUMMARY | 2024-10-07 08:49 | XMS_ITS | Encounter Summary ---
Author Organization [facility] Address [address] [place] [address] Care Team Providers Care Pulp Refiner Operator Name Role Phone Milagros Hernadez [facility] Primary Care Provider + Theresa Prescott MD Unavailable [phone] Michel Rush MD Unavailable [phone] Liset Summers APRN Primary Care Provider [phone] Thomas Wick Primary Care Provider Encounter Details Date Type Department Care Team (Late st Contact Info) Description 05/25/2023 Therapy Plan [facility] [address] [place], [place] [id number] Milagros Hernadez [facility] [address] [place] [phone] Social History Tobacco Use Types Packs/Day Years [...] Frequency of Binge Drinking Not on file 0312/2018 PHQ-2 Answer Date Recorded Patient Health Questionnaire-2 [...] 04/09/2021 2:06 PM Palak Chand RN Active * Do you have difficulty dressing or bathing? Answer Date of Assessment Author Status No 04/09/2021 2:06 PM Palak Chand RN Active * Because of a physical, [...] st Contact Info) Description 10/12/2024 1:20 PM SAIL CUTTER Office Visit [facility] Family & Internal Medicine [facility] [address] [place] [address] [place] [id number] [place] [address] 11/23/2024 11:45 AM CDT [facility] [address] [place] [address] Michel Rush MD [address] [id number] 11/28/2024 7:00 AM CDT Office Visit [facility] Family & Internal Medicine [facility] [address] [place] [address] [place] [address] [place] [address] documented as of this encounter Goals Goal Patient Goal Type Associated Problems Recent Progress Patient-Stated? Author Health - patient able to perform ADLs independently General No Evette Campuzano RN documented as of this encounter Visit Diagnoses Diagnosis Other osteoporosis without current pathological fracture- Primary documented in this encounter Additional Health Concerns Infection Onset Date Last Indicated Resolved Time COVID-19 Rule Out 09/21/2024 09/21/2024 09/21/2024 7:37 AM SAIL CUTTER Assessment Noted Time PHQ-9 Depression Total Score: 14 023 11:01 AM SAIL CUTTER documented as of this encounter Care Teams Pulp Refiner Operator Relationship Specialty Start Date End Date [facility] P[facility] - General Nurse Practitioner Family 10/06/22 05/25/23 Liset Summers APRN [address] [facility] [address] [place] [address] PCP - General NURSE PRACTITIONER 05/26/23 12/13/23 [place] [address] [place] [address] PCP - General Physician Commercial Announcer Medical 12/14/23 Theresa Prescott MD [facility] [address] [place] [address] RHEUMATOLOGY 10/17/22 Michel Rush MD [address] [address] Consulting Physician CARDIOVASCULAR DISEASE 10/17/22 documented as of this encounter
--- OUTSIDE RECORDS SUMMARY | 2024-10-07 08:50 | XMS_ITS | Clinical Summary ---
Author Organization [facility] Address [facility] [place] [address] Care Team Providers Care Sunglass Clip Attacher Name Role Phone Theresa Prescott MD Unavailable [phone] Michel Rush MD Unavailable [phone] Charity Larsen Primary Care Provider [phone] Allergies Active Allergy Reactions Criticality Noted Date Comments Codeine Nausea and Vomiting Low 05/03/2019 Medications Calcium Carbonate-Vit D-Min (CALTRATE 600+D PLUS MINERALS) 600-800 MG-UNIT Chew TabIndications:O steopenia of spine Chew 1 each by mouth 2 (two) times a day. 60 tablet 12/08/19 20 Active aspirin EC 81 MG tablet Take 1 tablet (81 mg total) by mouth daily. 04/15/20 20 Active Multiple Vitamins-Mineral s (MULTIVITAMIN ADULTS OR) Take 1 tablet by mouth daily. Active traMADol (ULTRAM) 50 MG tablet Take 1 tablet (50 mg total) by mouth every 6 (six) hours as needed. 04/27/20 23 Active metoprolol succinate ER (TOPROL-XL) 25 MG 24 hr tablet Take 1 tablet by mouth once daily 30 tablet 11 12/23/19 24 Active DULoxetine (CYMBALTA) 30 MG capsuleIndicatio ns:Fibromyalgia TAKE 1 CAPSULE BY MOUTH ONCE DAILY CONTINUE THE 60MG AT NIGHT 90 capsule 02/14/20 24 Active Additional Information Patient not taking.Reported on 09/21/2024 DILMA Parker, (MEDROL DOSEPAK) 4 MG tabletIndication s:Rash,Sun allergy 6 TABLETS ON DAY ONE, 5 TABLETS DAY TWO, 4 TABLETS DAY THREE, 3 TABLETS DAY FOUR, 2 TABLETS DAY FIVE, AND 1 TABLET DAY SIX 1 each 03/27/20 24 Active Additional Information Patient not taking.Reported on 09/21/2024 meloxicam (MOBIC) 15 MG tabletIndication s:Chronic joint pain Take 1 tablet by mouth once daily 90 tablet 05/15/20 24 Active gabapentin (NEURONTIN) 300 MG capsuleIndicatio ns:Neuropathy TAKE 1 CAPSULE BY MOUTH THREE TIMES DAILY 270 capsule 07/20/20 24 Active DULoxetine (CYMBALTA) 60 MG capsuleIndicatio ns:Anxiety Take 1 capsule by mouth once daily 90 capsule 07/28/20 24 Active methocarbamol (ROBAXIN) 500 MG tabletIndication s:Muscle spasms of lower extremity TAKE 1 TABLET BY MOUTH 4 TIMES DAILY NEEDED FOR PAIN 40 tablet 07/31/20 24 Active pramipexole (MIRAPEX) 0.125 MG tabletIndication s:Restless leg syndrome TAKE 1 TABLET BY MOUTH 4 TIMES DAILY . APPOINTMENT REQUIRED FOR FUTURE REFILLS 360 tablet 08/25/19 25 Active hydrocortisone 2.5 % cream Apply topically 2 (two) times daily. 07/25/20 24 Active benzonatate (TESSALON PERLES) 100 MG capsuleIndicatio ns:Cough,Dry cough Take 2 capsules 3 times a day for 10 days as needed. 60 capsule 08/30/19 25 Active Additional Information Patient not taking.Reported on 09/21/2024 atorvastatin (LIPITOR) 40 MG tabletIndication s:Coronary artery disease involving [place] coronary artery of [place] heart without angina pectoris TAKE 1 TABLET BY MOUTH NIGHTLY AT BEDTIME 90 tablet 09/06/19 25 Active alendronate (FOSAMAX) 70 MG tabletIndication s:Chronic bilateral low back pain with bilateral sciatica Take 1 tablet (70 mg total) by mouth once a week. 12 tablet 1 09/11/19 25 Active losartan (COZAAR) 50 MG tabletIndication s:Primary hypertension Take 1 tablet (50 mg total) by mouth daily. 30 tablet 09/15/19 25 Active benzonatate (TESSALON PERLES) 100 MG capsuleIndicatio ns:Bronchitis Take 1 capsule (100 mg total) by mouth 3 (three) times daily as needed for Cough. 40 capsule 09/21/19 25 Active omeprazole (PRILOSEC) 20 MG capsuleIndicatio ns:Chronic cough Take 1 capsule (20 mg total) by mouth daily. 30 capsule 09/21/19 25 Active alendronate (FOSAMAX) 70 MG tabletIndication s:Chronic bilateral low back pain with bilateral sciatica Take 1 tablet by mouth once a week 12 tablet 1 04/04/20 24 025 Discontinu ed(Reorder ) amoxicillin (AMOXIL) 875 MG tabletIndication s:Bronchitis Take 1 tablet (875 mg total) by mouth 2 (two) times daily for 10 days. 20 tablet 09/06/19 25 025 lisinopril (PRINIVIL) 10 MG tabletIndication s:Primary hypertension Take 1 tablet (10 mg total) by mouth daily. 30 tablet 1 09/14/19 25 025 Discontinu ed(Alterna te therapy) predniSONE (DELTASONE) 20 MG tabletIndication s:Bronchitis Take 1 tablet (20 mg total) by mouth daily for 7 days. 7 tablet 09/21/19 25 025 Active Problems Problem Noted Date Diagnosed Date Family history of colon cancer 03/04/2023 Overview (03/04/2023): Added automatically from request for surgery [id number] Coronary artery disease invo lving [place] coronary artery of [place] heart without angina pectoris 03/03/2023 COPD (chronic obstructive pu lmonary disease) ([facility]) 02/25/2023 Primary osteoarthritis of right knee 12/09/2022 Other osteoporosis without current pathological fracture 11/04/2022 Class 1 obesity due to exces s calories with serious comorbidity and body mass index (BMI) of 30.0 to 30.9 in adult 10/17/2022 Primary osteoarthritis involving multiple joints 10/17/2022 Fibromyalgia 10/17/2022 Primary insomnia 10/17/2022 HTN (hypertension) 10/17/2022 Neuropathy 10/17/2022 Hyperreflexia 10/17/2022 Chronic non-specific white matter lesions on MRI 10/17/2022 Chronic pain of both knees 05/07/2022 HLD (hyperlipidemia) 07/30/2020 Depression 05/13/2018 Restless leg syndrome 05/13/2018 Generalized anxiety disorder 08/11/2013 Traumatic arthritis of ankle 07/15/2012 Acquired kyphosis 09/17/2009 Scoliosis 09/17/2009 Resolved Problems Problem Noted Date Diagnosed Date Resolved Date TIA (transient ischemic attack) 04/08/2021 10/17/2022 Arthritis 07/30/2020 10/17/2022 Obesity (BMI 30-39.9) 09/27/20192022 Acute bronchitis 10/19/2017 09/27/2019 Sore throat 10/19/2017 09/27/2019 Overview (10/18/2018): Transitioned From: Sore throat URI, acute 10/19/2017 09/27/2019 Wears reading eyeglasses 10/19/201706/2020 Encounter for preventive health examination 03/10/2012 09/27/2019 Encounters Date Type Department Care Team Description 10/06/2024 MyChart Message Enc [facility] Family Internal [address] [phone] Diaz Keane MD Debbie Stidem 09/22/2024 Orders Only [address] [phone] Maria Del Rosario Singh, PA 09/21/2024 12:25 PM ELEVATOR RUNNER - 09/21/2024 11:59 PM ELEVATOR RUNNER Hospital Encounter [facility] [address] [place] [address] Charity Larsen PA Billhartz, Lynn D, PA Discharge Disposition: Home or Self Care (Routine Discharge) 09/21/2024 7:55 AM ELEVATOR RUNNER - 09/21/2024 7:58 AM ELEVATOR RUNNER Hospital Encounter [facility] [address] [place] [address] Charity Larsen PA Discharge Disposition: Home or Self Care (Routine Discharge) 09/21/2024 7:20 AM ELEVATOR RUNNER Office Visit [facility] Internal [address] [phone] Maria Del Rosario Singh PA Cough (X 4-5 weeks-would like covid /flu/strep-coughs to point of gagging) 09/21/2024 Travel 09/15/2024 MyChart Message Enc [facility] Internal [address] [phone] Charity Larsen PA Cough 09/15/2024 Orders Only [facility] Internal [address] [phone] Charity Larsen PA 09/15/2024 MyChart Message Enc [address] [phone] Charity Larsen PA Debra Stidem / 1955 09/14/2024 MyChart Message Enc [facility] Internal [address] [phone] Charity Larsen PA Debra Stidem : 1955 09/06/2024 3:00 PM ELEVATOR RUNNER Office Visit [address] [phone] Maria Del Rosario Singh PA Cough (Pt c/o sore throat, cough started 2-3 wks ago. PCP prescribed meds, (not working she says) ) 09/06/2024 Travel 09/05/2024 12:08 PM ELEVATOR RUNNER - 09/05/2024 11:59 PM ELEVATOR RUNNER Hospital Encounter [facility] [id number] [place] [address] Charity Larsen PA Discharge Disposition: Home or Self Care (Routine Discharge) 09/05/2024 Telephone [facility] Internal [address] [phone] Charity Larsen PA Edema 09/05/2024 Travel 09/05/2024 MyChart Message Enc [address] [phone] Dax [facility] Provider Blood Pressure Cuff 09/05/2024 Care Management [address] [phone] Casandra Castellanos, RAMP ATTENDANT 08/31/2024 1:10 PM ELEVATOR RUNNER - 08/31/2024 11:59 PM ELEVATOR RUNNER Hospital Encounter [facility] [address] [place] [phone] Charity Larsen PA Discharge Disposition: Home or Self Care (Routine Discharge) 08/31/2024 7:00 AM ELEVATOR RUNNER Laboratory Only [address] [phone] Charity Larsen PA 08/31/2024 MyChart Message Enc [address] [phone] Charity Larsen PA Debra Telly 1955 08/31/2024 Travel 08/30/2024 Orders Only [address] [phone] Charity Larsen PA 08/29/2024 11:40 AM ELEVATOR RUNNER Office Visit [address] [phone] Charity Larsen PA Follow Up (3 month follow up/Last follow up 12/07); Hypertension; Hyperlipidemia; Depression 08/29/[address] [phone] Charity Larsen PA Medication Problem 08/29/2024 Travel 07/31/2024 MyChart Message Enc [facility] Family & Internal Medicine [address] [phone] Dax, [facility] Provider Appointment from Last 3 Months Immunizations Name Administration Dates Next Due Fluzone 6 Months+ Quad (0.5 mL Prefilled Syringe) 06/03/2020 Fluzone High Dose (IIV, triv alent, 0.5mL) 08/29/2024 Fluzone High Dose - >Age 65 (Prefilled Syringe) 07/15/2023,10/06/2022 Influenza (Generic) 08/14/2021(Deferred: Patient Refused),06/14/2014,08/24/2012 Influenza Adult (Generic) 07/15/2023,05/13/2018, 06/20/2015 PFIZER COVID-19 (ORIGINAL FORMULATION, PURPLE CAP) mRNA, LNP-S, PF, 30 MCG/0.3 ML DOSE 06/20/2021,05/05/2021 Pneumococcal (Pneumovax 23) 10/06/2022 Pneumococcal (Prevnar 13) 06/03/2020 Shingrix 09/28/2023,09/13/2023,07/15/2023 Family History Medical History Relation Comments Mental Health Brother 1 Down Syndrone Seizures Brother 1 Cancer Brother 2 Celestino Alcohol Abuse Brother 3 heavy drinker Cancer Brother 3 Stomach / Lung Cancer Father Brain Arthritis Mother Cancer Mother Breast Hypertension Mother afib Mother Breast Cancer Neg Hx Relation Status Comments Brother 1 Brother 2 Alive Brother 3 Father Mother Social History Tobacco Use Types Packs/Day Years Used Date Smoking Tobacco: Former Cigarettes 2 20.1 1 971 - 09/12/1990 Passive Smoke Exposure: Past Smokeless Tobacco: Never Tobacco Cessation:Counseling Given: No Comments:Smoked cigarettes and quit right around 1st back surgery. Alcohol Use Standard Drinks/Week Comments Yes 0 (1 standard drink = 0.6 oz pure alcohol) Beer drinker as young adult stopped driving 1990. AUDIT-C Answer Date Recorded Q1: How often do you have a drink containing alc ohol? Monthly or less 12/14/2023 Q2: How many drinks containi ng alcohol do you have on a typical day when you are drinking? 1 or 2 12/14/2023 Q3: How often do you have si x or more drinks on one occasion? Never 12/14/2023 PHQ-2 Answer Date Recorded Patient Health Questionnaire-2 Score 0 08/29/2024 Education Answer Date Recorded What is the [...] Sign Reading Time Taken Comments Blood Pressure 142/68 09/21/2024 7:14 AM ELEVATOR RUNNER taken manually Pulse 61 09/21/2024 7:07 AM ELEVATOR RUNNER Temperature 36.2 C (97.2 F) 09/21/2024 7:07 AM ELEVATOR RUNNER Respiratory Rate 20 09/21/2024 7:07 AM ELEVATOR RUNNER Oxygen Saturation 99% 09/21/2024 7:0 7 AM ELEVATOR RUNNER Inhaled Oxygen Concentration - - Weight 95.2 kg (209 lb 12.8 oz) 09/21/2024 7:07 AM ELEVATOR RUNNER Height 165.1 cm (5' 5 ) 09/21/2024 7:07 AM ELEVATOR RUNNER Body Mass Index 34.91 09/21/2024 7:07 AM ELEVATOR RUNNER Plan of Treatment Upcoming Encounters Date Type Department Care Team (Late st Contact Info) Description 10/12/2024 1:20 PM ELEVATOR RUNNER Office Visit [facility] Family & Internal Medicine [facility] [address] [place] [phone] [place] [address] [place] [address] 11/23/2024 11:45 AM CDT [facility] [address] [place] [phone] Michel Rush MD [address] [address] 11/28/2024 7:00 AM CDT Office Visit [facility] Family & Internal Medicine [facility] [address] [place] [phone] [place] [address] [place] [address] Health Maintenance Due Date Last Done Comments DTaP, Tdap and Td Vaccines (1 - Tdap) 12/13/2024 Postponed from 1975 (Patient Refused) RSV Immunization or 60+ Years (1 - Risk 60-74 years 1-dose series) 12/13/2024 Postponed fro m 2016 (Going to Outside Clinic) Annual Medicare Wellness Visit 12/14/2024 12/14/2023 COVID-19 Vaccine ( season) 2025 06/20/2021, 05/05/2021 Postponed from 04/16/2024 (Patient Refused) Mammogram Screening 12/15/2025 12/16/2023, 10/28/2022, 07/25/2020, Additional history exists Colorectal Cancer Screening FIT-DNA (3 Years) 12/26/2026 12/27/2023, 12/27/2023 Hepatitis C Completed 05/17/2019 Pneumococcal Vaccine: 65+ Years Completed 10/06/2022, 06/03/2020 Dexa Scan (General) Completed 10/28/2022 Zoster Vaccines Completed 09/28/2023, 08/17, 07/15/2023 Influenza Adult Completed 08/29/2024, 06/18, 07/15/2023, Additional history exists PHQ-2 (Physician [place]) Completed 08/29/2024 Meningococcal B Vaccine Aged Out No l onger eligible based on patient's age to complete this topic Meningococcal Vaccine Aged Out No chuck monika eligible based on patient's age to complete this topic RSV Immunizations Under 20 Months Aged Out No longer eligible based on patient's age to complete this topic Goals Goal Patient Goal Type Associated Problems Recent Progress Patient-Stated? Author Health - patient able to perform ADLs independently General No Evette Campuzano, level vial inside grinder Procedure Name Priority Date/Time Associated Diagnosis Comments XR CHEST PA+LAT STAT 09/21/2024 8:31 AM ELEVATOR RUNNER Bronchitis VITAMIN B12 / FOLATE Routine 09/21/2024 8:08 AM ELEVATOR RUNNER B12 deficiency CULTURE STREP A Routine 09/21/2024 7:31 AM ELEVATOR RUNNER Sore throat STREP A RAPID Routine 09/21/2024 Sore throat CORONAVIRUS (COVID-19) INFLUENZA A & B ANTIGEN IA PANEL Routine 09/21/2024 Suspected COVID-19 virus infection USV MISSY DUPLEX LOW EXT RT ESTEFANIA 09/05/2024 12:51 PM ELEVATOR RUNNER Right calf pain COLLECTION VENOUS BLOOD VENIPUNCTURE Routine 08/31/2024 7:26 AM ELEVATOR RUNNER Screening for endocrine, metabolic and immunity disorder Screening, lipid Vitamin D deficiency B12 deficiency VITAMIN D, 25 OH Routine 08/31/2024 7:25 AM ELEVATOR RUNNER Vitamin D deficiency THYROXINE, FREE (FT4) Routine 08/31/2024 7:25 AM ELEVATOR RUNNER Screening for endocrine, metabolic and immunity disorder THYROID STIM HORMONE TSH Routine 08/31/2024 7:25 AM ELEVATOR RUNNER Screening for endocrine, metabolic and immunity disorder LIPID PANEL Routine 08/31/2024 7:25 AM ELEVATOR RUNNER Screening, lipid INSULIN,TOTAL Routine 08/31/2024 7:25 AM ELEVATOR RUNNER Screening for endocrine, metabolic and immunity disorder FREE T3 Routine 08/31/2024 7:25 AM ELEVATOR RUNNER Screening for endocrine, metabolic and immunity disorder COLOGUARD (EXACT SCIENCE) Routine 12/27/2023 2:22 PM CDT Colon cancer screening BONE DENSITY/DEXA Routine 10/28/2022 2:5 5 PM CDT Postmenopausal MG SCREENING W DOUGIE [place] DIGI Routine 10/28/2022 2:45 PM CDT Breast cancer screening by mammogram HEPATITIS C ANTIBODY Routine 05/17/2019 4:21 PM CDT Need for hepatitis C screening test from Last 3 Months or Most Recently Relevant to Health Maintenance Results * XR CHEST PA+LAT (09/21/2024 8:31 AM ELEVATOR RUNNER) Anatomical Region Laterality Modality Chest Radiographic Janet ging 09/21/2024 8:33 AM ELEVATOR RUNNER Impressions 09/21/2024 8:37 AM ELEVATOR RUNNER IMPRESSION: 1. No significant change since 11/15/2019 and no acute pulmonary disease. 2. COPD with mild chronic interstitial scarring in the lower lobes. 3. Fusion rods in the thoracolumbar spine with dextroscoliosis of the lower thoracic and upper lumbar spine. Referred By: Interpreted By: Adela Barrera MD, 09/21/2024 8:33 AM Narrative 09/21/2024 8:37 AM ELEVATOR RUNNER [address] [id number] [place] [address] EXAMINATION: XR PA and Lateral CXR, 2 views INDICATION: Cough for 4 weeks. COMPARISON: Portable AP chest x-ray 11/15/2019. FINDINGS: The cardiomediastinal silhouette is within normal limits. Pulmonary vascularity is normal. Stable hyperinflation of the lungs with emphysematous changes related to COPD. Stable minimal chronic linear interstitial scarring in the lower lobes. No acute infiltrate, consolidation, pleural effusion, or pneumothorax. Fusion rods in the thoracic and included upper lumbar spine, stable from the prior exam of anchor suture in the right humeral head. Mild osteopenia. Mild arthritic changes in the shoulders. Dextroscoliosis of the lower thoracic and upper lumbar spine. No acute osseous abnormality. Procedure Note Adela Barrera MD - 09/21/2024 [facility] [address] [place] [address] EXAMINATION: XR PA and Lateral CXR, 2 views INDICATION: Cough for 4 weeks. COMPARISON: Portable AP chest x-ray 11/15/2019. FINDINGS: The cardiomediastinal silhouette is within normal limits. Pulmonaryvascularity is normal. Stable hyperinflation of the lungs withemphysematous changes related to COPD. Stable minimal chronic linearinterstitial scarring in the lower lobes. No acute infiltrate,consolidation, pleural effusion, or pneumothorax. Fusion rods in thethoracic and included upper lumbar spine, stable from the prior exam ofanchor suture in the right humeral head. Mild osteopenia. Mild arthriticchanges in the shoulders. Dextroscoliosis of the lower thoracic and upperlumbar spine. No acute osseous abnormality. IMPRESSION: 1. No significant change since 11/15/2019 and no acute pulmonary disease. 2. COPD with mild chronic interstitial scarring in the lower lobes. 3. Fusion rods in the thoracolumbar spine with dextroscoliosis of thelower thoracic and upper lumbar spine. Referred By: Interpreted By: Adela Barrera MD, 09/21/2024 8:33 AM Maria Del Rosario [facility] Final Result * (ABNORMAL) VITAMIN B12 / FOLATE (09/21/2024 8:08 AM ELEVATOR RUNNER) VITAMIN B12 S/P/B 1,113(H) 193 - 986 PG/ML 09/21/2024 9:58 AM ELEVATOR RUNNER [facility] FOLATE >20.0 8.6 - 58.9 NG/ML 09/21/2024 9:58 AM ELEVATOR RUNNER [facility] 09/21/2024 8:08 AM ELEVATOR RUNNER Charity [facility] Final Result Performing Organization Address City/[facility]/ZIP Co de Phone Number [facility] [address] [place] [address], [place] [phone] * CULTURE STREP A (09/21/2024 7:31 AM ELEVATOR RUNNER) SPEC DESCRIPTION THROAT 09/21/2024 12:26 PM ELEVATOR RUNNER [facility] SPECIAL REQUESTS NO SPECIAL REQUEST 09/21/2024 12:26 PM ELEVATOR RUNNER [facility] CULTURE RESULT NO STREPTOCOCCUS PYOGENES (GROUP A) ISOLATED 09/23/2024 9:07 AM ELEVATOR RUNNER [facility] THROAT SWAB / Unknown 09/21/2024 7:31 AM ELEVATOR RUNNER 09/21/2024 12:40 PM ELEVATOR RUNNER Maria Del Rosario [facility] - GENERAL ORDER JAS Final Result Performing Organization Address [facility] Co de Phone Number [facility] [address] [place] [address], [place] [phone] [facility] [address] [place] [address], [place] [phone] * CORONAVIRUS (COVID-19) INFLUENZA A & B ANTIGEN IA PANEL (09/21/2024) CORONAVIRUS ANTIGEN IA NEGATIVE NEGATIVE [id number], [place] INFLUENZA A NEGATIVE NEGATIVE [id number], [place] INFLUENZA B NEGATIVE NEGATIVE [id number], [place] Internal Control: VALID VALID [id number] / Unknown 09/21/2024 Maria Del Rosario [facility] - GENERAL ORDER JAS Final Result Performing Organization Address City/[facility]/ZIP Co de Phone Number [phone] [place] [address] [place] [address], [place] [phone] * STREP A RAPID (09/21/2024) RAPID STREP TEST NEGATIVE NEGATIVE -[id number] HERNANDEZ Internal Control: VALID VALID -Jose D BA [place] STRUCTURE OF ANTERIOR PORTION OF NECK / Unknown 09/21/2024 Maria Del Rosario [facility] - GENERAL ORDER JAS Final Result [address] [place] [address] [place] [address], [place] [phone] * USV MISSY DUPLEX LOW EXT RT (09/05/2024 12:51 PM ELEVATOR RUNNER) Anatomical Region Laterality Modality Extremity Ultrasound 09/05/2024 3:34 PM ELEVATOR RUNNER Impressions 09/05/2024 3:37 PM ELEVATOR RUNNER IMPRESSION: 1.. No evidence of deep venous thrombosis in the Right lower extremity. Referred By: CHARITY LARSEN Interpreted By: Dominique Moses DO, 09/05/2024 3:34 PM Narrative 09/05/2024 3:37 PM ELEVATOR RUNNER [facility] [address] [place] [address] EXAMINATION: RIGHT LOWER EXTREMITY VENOUS DOPPLER DUPLEX EVALUATION. . CLINICAL INDICATION: 69-year-old female. Reason for examination: Increased swelling of the right lower extremity over the past 3 months. Patient reports pain in the right lower leg, as well . TECHNIQUE: Venous Doppler duplex imaging of the right lower extremity was obtained with augmentation, compression and spectral waveform analysis. Additional imaging to assess grayscale appearance and color flow characteristics. COMPARISON: No previous FINDINGS: There is no evidence of deep venous thrombosis in the Right lower extremity. Spontaneous and appropriate flow was noted. All vessels were easily compressible. Normal waveform after augmentation. Normal arterial and venous vessels on color flow imaging without intraluminal filling defect or interruption of flow. Procedure Note Dominique Moses MD - 09/05/2024 [facility] [address] [place] [address] EXAMINATION: RIGHT LOWER EXTREMITY VENOUS DOPPLER DUPLEX EVALUATION. . CLINICAL INDICATION: 69-year-old female. Reason for examination: Increased swelling of the right lower extremityover the past 3 months. Patient reports pain in the right lower leg, as well . TECHNIQUE: Venous Doppler duplex imaging of the right lower extremity was obtainedwith augmentation, compression and spectral waveform analysis. Additionalimaging to assess grayscale appearance and color flow characteristics. COMPARISON: No previous FINDINGS: There is no evidence of deep venous thrombosis in the Right lowerextremity. Spontaneous and appropriate flow was noted. All vessels wereeasily compressible. Normal waveform after augmentation. Normal arterialand venous vessels on color flow imaging without intraluminal fillingdefect or interruption of flow. IMPRESSION: 1.. No evidence of deep venous thrombosis in the Right lower extremity. Referred By: CHARITY LARESN Interpreted By: Dominique Moses DO, 09/05/2024 3:34 PM Charity [facility] Final Result * FREE T3 (08/31/2024 7:25 AM ELEVATOR RUNNER) FREE T3 3.0 2.18 - 3.98 PG/ML 09/01/2024 11:32 AM ELEVATOR RUNNER [facility] 08/31/2024 7:25 AM ELEVATOR RUNNER us Charity [facility] Final Result [facility] [address] [place] [address], [place] [phone] * LIPID PANEL (08/31/2024 7:25 AM ELEVATOR RUNNER) CHOLESTEROL 157 <200.0 MG/DL 08/31/2024 2:45 PM [facility] TRIGLYCERIDES 49 <150 MG/DL 08/31/2024 2:45 PM [facility] HDL 56 >40.0 MG/DL 08/31/2024 2:45 PM [facility] LDL (CALCULATED) 91 <100 MG/DL 08/31/19 2:45 PM [facility] NON HDL CHOLESTEROL 101 <130 MG/DL 08/31 2:45 PM [facility] CHOL/HDL RATIO 2.8 0.0 - 4.5 08/31/2024 2:45 PM [facility] VLDL CALCULATION 10 5 - 55 MG/DL 08/31/2024 2:45 PM [facility] LIPID INTERPRETATION 08/31/2024 2:45 PM [facility] Comment: [facility] REPORT RECOMMENDATIONS: ADULT CHILD LOW RISK: CHOLESTEROL <200 <170 TRIGLYCERIDE <150 --- HDL >=60 --- LDL <100 <110 BORDERLINE: CHOLESTEROL 200-239 170-199 TRIGLYCERIDE 150-199 --- HDL 40-59 --- LDL 100-159 110-129 HIGH RISK: CHOLESTEROL >=240 >=200 TRIGLYCERIDE >=200 --- HDL <40 --- LDL >=160 >=130 08/31/2024 7:25 AM ELEVATOR RUNNER us [facility] Final Result [facility] [address] [place] [address], * THYROXINE, FREE (FT4) (08/31/2024 7:25 AM ELEVATOR RUNNER) FREE T4 1.02 0.76 - 1.46 NG/DL 08/31/2024 2:45 PM [facility] 08/31/2024 7:25 AM ELEVATOR RUNNER [facility] Final Result Performing Organization Address [facility] Co de Phone Number [facility] [address] [place] [address], [place] [phone] * THYROID STIM HORMONE TSH (08/31/2024 7:25 AM ELEVATOR RUNNER) TSH 0.385 0.358 - 3.74 uIU/ML 08/31/2024 2:45 PM ELEVATOR RUNNER [facility] Comment: HIGH DOSES OF BIOTIN MAY INTERFERE WITH THIS TEST RESULT. CORRELATION TO CLINICAL HISTORY AND PRESENTATION RECOMMENDED. 08/31/2024 7:25 AM ELEVATOR RUNNER [facility] Final Result Performing Organization Address [facility] Co de Phone Number [facility] [address] [place] [address], [place] [phone] * VITAMIN D, 25 [place] (08/31/2024 7:25 AM ELEVATOR RUNNER) [facility] VITAMIN D 25 HYDROXY S/P/B 36 30 - 100 NG/ML 08/31/2024 3:09 PM ELEVATOR RUNNER [facility] Comment: INTERPRETATION DEFICIENT <20 INSUFFICIENT 20-29 SUFFICIENT 30-100 08/31/2024 7:25 AM ELEVATOR RUNNER [facility] Final Result Performing Organization Address [facility]/ZIP Co de Phone Number [facility] [address] [place] [address], [place] [phone] * INSULIN,TOTAL (08/31/2024 7:25 AM ELEVATOR RUNNER) INSULIN 10.1 <=18.4 uIU/mL 09/13/2024 6:00 AM ELEVATOR RUNNER [facility] Comment: Risk: Optimal < or = 18.4 Moderate NA High >18.4 Adult cardiovascular event risk category cut points (optimal, moderate, high) are based on Insulin Reference interval studies performed at [facility] in 2021. Test Performed by [facility], [facility], [address] [place] [address] Ismael Nunez M.D., Ph.D., Director of Laboratories , CLIA [id number] 08/31/2024 7:25 AM ELEVATOR RUNNER [facility] Final Result [facility] [address] , * COLOGUARD (EXACT SCIENCE) (12/27/2023 2:22 PM CDT) COLOGUARD RESULT Negative Negative [facility] (CLIA #:[id number]) Comment: NEGATIVE TEST RESULT. A negative Cologuard result indicates a low likelihood that a colorectal cancer (CRC) or advanced adenoma (adenomatous polyps with more advanced pre-malignant features) is present. The chance that a person with a negative Cologuard test has a colorectal cancer is less than 1 in 1500 (negative predictive value >99.9%) or has an advanced adenoma is less than 5.3% (negative predictive value 94.7%). These data are based on a prospective cross-sectional study of 10,000 individuals at average risk for colorectal cancer who were screened with both Cologuard and colonoscopy. (Efrain Mayo et al, N Engl J Med 2014;370(14):2031-3388) The normal value (reference range) for this assay is negative. COLOGUARD RE-SCREENING RECOMMENDATION: Periodic colorectal cancer screening is an important part of preventive healthcare for asymptomatic individuals at average risk for colorectal cancer. Following a negative Cologuard result, the [place] [employer] and U.S. Multi-Society Task Force screening guidelines recommend a Cologuard re-screening interval of 3 years. References: [place] [employer] Guideline for Colorectal Cancer Screening: https://www.cancer.org/cancer/lynzb-hdkizx-bcqldd/knbbgtwwz-zszdfhhkb-djcusof/ac s-rec ommendations.html.; Simone MURRIETA, Fay KIM, Beth GIBSON, Colorectal Cancer Screening: Recommendations for Physicians and Patients from the U.S. Multi-Society Task Force on Colorectal Cancer Screening , Am J Gastroenterology 2017; 112:0397-9699. TEST DESCRIPTION: Composite algorithmic analysis of stool DNA-biomarkers with hemoglobin immunoassay. Quantitative values of individual biomarkers are not reportable and are not associated with individual biomarker result reference ranges. Cologuard is intended for colorectal cancer screening of adults of either sex, 45 years or older, who are at average-risk for colorectal cancer (CRC). Cologuard has been approved for use by the U.S. FDA. The performance of Cologuard was established in a cross sectional study of average-risk adults aged 50-84. Cologuard performance in patients ages 45 to 49 years was estimated by sub-group analysis of near-age groups. Colonoscopies performed for a positive result may find as the most clinically significant lesion: colorectal cancer [4.0%], advanced adenoma (including sessile serrated polyps greater than or equal to 1cm diameter) [20%] or non- advanced adenoma [31%]; or no colorectal neoplasia [45%]. These estimates are derived from a prospective cross-sectional screening study of 10,000 individuals at average risk for colorectal cancer who were screened with both Cologuard and colonoscopy. (Efrain Hyde al, N Engl J Med 2014;370(14):8741-6252.) Cologuard may produce a false negative or false positive result (no colorectal cancer or precancerous polyp present at colonoscopy follow up). A negative Cologuard test result does not guarantee the absence of CRC or advanced adenoma (pre-cancer). The current Cologuard screening interval is every 3 years. ([place] [employer] and U.S. Multi-Society Task Force). Cologuard performance data in a 10,000 patient pivotal study using colonoscopy as the reference method can be accessed at the following location: www.exactlabs.com/results. Additional description of the Cologuard test process, warnings and precautions can be found at www.cologOff Grid Electricrd.com. STOOL STOOL SPECIMEN / Unknown 12/27/2023 2:22 PM CDT 12/29/2023 9:49 AM CDT us [facility] FLUIDS [facility] STOOLS ORDERAB LES Final Result [facility] ([facility]) [address] [place] [address], [facility] (CLIA #:[id number]) [address] [place] [place] [address] * BONE DENSITY/DEXA (10/28/2022 2:55 PM CDT) Anatomical Region Laterality Modality Bone Bone Density 10/28/2022 3:34 PM CDT Narrative 10/28/2022 3:36 PM CDT IMAGING STUDIES: BONE DENSITY/DEXA DATE: 10/28/2022 2:36 PM CLINICAL HISTORY: 67-year-old female with menopause at age 46. On calcium supplements.. FINDINGS: Distal left forearm. Patient with history of lumbar surgery.: BMD: 0.331 g/sq cm T-SCORE: -6.1 WHO CLASSIFICATION: Severe osteoporosis FRACTURE RISK: Extreme LEFT FEMORAL NECK: BMD: 0.530 T-SCORE: -2.9 WHO CLASSIFICATION: Mild osteoporosis FRACTURE RISK: Moderate Recommendation. Continuation of calcium replacement therapy with repeat imaging in one year. Possible initiation of aggressive calcium replacement therapy. Ordered By: NATALIA BURROUGHS Interpreted By: Sherrie Fields, 10/28/2022 3:34 PM Procedure Note Tamir Fields MD - 10/28/2022 IMAGING STUDIES: BONE DENSITY/DEXA DATE: 10/28/2022 2:36 PM CLINICAL HISTORY: 67-year-old female with menopause at age 46.On calcium supplements.. FINDINGS: Distal left forearm. Patient with history of lumbar surgery.: BMD: 0.331 g/sq cm T-SCORE: -6.1 WHO CLASSIFICATION: Severe osteoporosis FRACTURE RISK: Extreme LEFT FEMORAL NECK: BMD: 0.530 T-SCORE: -2.9 WHO CLASSIFICATION: Mild osteoporosis FRACTURE RISK: Moderate Recommendation. Continuation of calcium replacement therapy with repeatimaging in one year. Possible initiation of aggressive calcium replacementtherapy. Ordered By: NATALIA BURROUGHS Interpreted By: Sherrie Fields, 10/28/2022 3:34 PM Natalia Burroughs HOME HEALTH CARE COORDINATOR-BC DEXA Final Re sult * MG SCREENING W DOUGIE CAROLINA DIGI (10/28/2022 2:45 PM CDT) Anatomical Region Laterality Modality Breast Bilateral Mammography 10/29/2022 4:14 PM CDT Narrative 10/29/2022 4:16 PM CDT IMAGING STUDIES: Bilateral screening mammograms with computer-aided detection with 2-D and 3-D imaging. Tomosynthesis. DATE: 10/28/2022 2:30 PM HISTORY: screen brca . COMPARISON: 05/10/2019. 07/25/2020 TISSUE TYPE: The breast tissue is almost entirely fatty. FINDINGS: 1. Fatty fibroglandular tissue pattern is present. 2. No malignant microcalfcifications, new dominant masses, or architectural distortion. 3. No skin thickening or nipple retraction. Axillary regions are within normal limits. IMPRESSION: 1. No mammographic evidence of malignancy. 2. Assessment: ACR BI-RADS 1 - NEGATIVE 3 .Routine Screening Bilateral MQSA BI-RADS Categories: Category 0 - needs additional imaging evaluation. Category 1 - negative. Category 2 - benign findings. Category 3 - probably benign findings, but short interval follow-up is recommended. Category 4 - suspicious abnormality and biopsy should be considered though the lesion may well be benign. Category 5 - highly suggestive of malignancy and appropriate action should be taken. Category 6 - known biopsy-proven malignancy A) A negative report should not delay a biopsy if a dominant or clinically suspicious mass is present. B) Adenosis and dense breasts may obscure an underlying neoplasm. C) Study interpreted with computer aided detection. Ordered By: NATALIA BURROUGHS Interpreted By: Sherrie Fields, 10/29/2022 4:14 PM Natalia Burroughs HOME HEALTH CARE COORDINATOR-BC MAMMO Final Re sult * HEPATITIS C ANTIBODY (05/17/2019 4:21 PM CDT) HEPATITIS C AB NON-REACT LAVELLE NON-REACT LAVELLE [facility] SIGNAL TO CUTOFF 0.01 <1.00 [facility] Comment: HCV antibody was non-reactive. There is no laboratory evidence of HCV infection. In most cases, no further action is required. However, if recent HCV exposure is suspected, a test for HCV RNA (test code 51282) is suggested. For additional information please refer to http://education.Phos[employer]e/faq/GXC59n1 (This link is being provided for informational/ educational purposes only.) 05/17/2019 4:21 PM CDT 05/19/2019 3:38 AM CDT Narrative Resulting Agency Comment Performing Organization Information: Site ID: [place] Name: [facility] Address: [address] [address] Director: Duy Chandra D.O., MPH us Therese Anna ACCOUNTING PRACTICE MANAGER LABORATORY Final Resul t [facility] UN[facility]QUE ORDERS from Last 3 Months or Most Recently Relevant to Health Maintenance Insurance [employer] Advance Directives * Full Code (Latest Code Status on File) Date Activated Date Inactivated Comments 10/21/2023 11:16 AM 10/21/2023 4:45 PM * Full Code Date Activated Date Inactivated Comments 04/08/2021 12:49 PM 04/09/2021 5:02 PM Care Teams Sunglass Clip Attacher Relationship Specialty [place] [address] [place] [address] PCP - General Physician Color Tester Medical 12/14/23 Theresa Prescott MD [address] [facility] [address] [place] [address] RHEUMATOLOGY 10/17/22 Michel Rush MD [facility] [address] [place] [address] Consulting Physician CARDIOVASCULAR DISEASE 10/17/22
--- OUTSIDE RECORDS SUMMARY | 2024-10-07 08:50 | XMS_ITS | Encounter Summary ---
Author Organization [facility] Address [facility] [place] [address] Care Team Providers Care News Analyst Name Role Phone Theresa Prescott MD Unavailable [phone] Michel Rush MD Unavailable [phone] Thomas Wick Primary Care Provider [phone] Encounter Details Date Type Department Care Team (Late st Contact Info) Description 09/15/[address] 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 Family [facility] Internal Medicine [facility] [address] [place] [address] [place] [address] [place] [id number] 11/23/2024 11:45 AM CDT [facility] [address] [place] [address] Michel Rush MD [facility] [address] [place] [address] 11/28/2024 7:00 AM CDT Office Visit [facility] Internal Medicine - [place] [address] [place] [address] [place] [address] [place] [address] documented as of this encounter Goals Goal Patient Goal Type Associated Problems Recent Progress Patient-Stated? Author Health - patient able to perform ADLs independently General No Evette Campuzano RN documented as of this encounter Visit Diagnoses Not on filedocumented in this encounter Additional Health Concerns Infection Onset Date Last Indicated Resolved Time COVID-19 Rule Out 09/21/2024 09/21/2024 09/21/2024 7:37 AM LEATHER GOODS MAKER Assessment Noted Time PHQ-9 Depression Total Score: 14 025 4:42 PM LEATHER GOODS MAKER documented as of this encounter Care Teams News Analyst Relationship Specialty [place] [address] [place] [address] PCP - General Physician Team Otr Truck Driver Medical 12/14/23 Theresa Prescott MD [address] [facility] [address] [place] [id number] RHEUMATOLOGY 10/17/22 Michel Rush MD [facility] [address] [address] Consulting Physician CARDIOVASCULAR DISEASE 10/17/22 documented as of this encounter
--- OUTSIDE RECORDS SUMMARY | 2024-10-07 08:50 | XMS_ITS | Encounter Summary ---
Author Organization [facility] Address [facility] [place] [address] Care Team Providers Care Photo Technologist Name Role Phone Theresa Prescott MD Unavailable [phone] Michel Rush MD Unavailable [phone] Thomas Wick Primary Care Provider [phone] Encounter Details Date Type Department Care Team (Late st Contact Info) Description 05/23/2024 MiniMonos Message Enc [facility] Family [facility] Internal Medicine [facility] [address] [place] [address] [facility] Refill Social History Tobacco Use Types Packs/Day Years [...] Date Recorded Patient Health Questionnaire-2 Score 0 12/14/2023 Education Answer Date Recorded What is the [...] st Contact Info) Description 10/12/2024 1: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 [address] [place] [address] 11/28/2024 7:00 AM CDT Office Visit [facility] Family & Internal Medicine [facility] [address] [place] [address] [place] [address] [place] [address] documented as of this encounter Goals Goal Patient Goal Type Associated Problems Recent Progress Patient-Stated? Author Health - patient able to perform ADLs independently General No Evette Campuzano RN documented as of this encounter Visit Diagnoses Not on filedocumented in this encounter Additional Health Concerns Infection Onset Date Last Indicated Resolved Time COVID-19 Rule Out 09/21/2024 09/21/2024 09/21/2024 7:37 AM METAL BUILDINGS ASSEMBLER Assessment Noted Time PHQ-9 Depression Total Score: 16 024 8:11 AM CDT documented as of this encounter Care Teams Photo Technologist Relationship Specialty [place] [address] [place], [place] [phone] PCP - General Physician Centerless Grinder Set Up Operator Medical 12/14/23 Theresa Prescott MD [address] [facility] [address] [place] [address] RHEUMATOLOGY 10/17/22 Michel Rush MD [facility]. [address] [place], [place] [address] Consulting Physician CARDIOVASCULAR DISEASE 10/17/22 documented as of this encounter
--- OUTSIDE RECORDS SUMMARY | 2024-10-07 08:50 | XMS_ITS | Encounter Summary ---
Author Organization [facility] Address [facility] [place] [address] Care Team Providers Care Layout Technician Name Role Phone Theresa Prescott MD Unavailable [phone] Michel Rush MD Unavailable [phone] Thomas Wick Primary Care Provider [phone] Encounter Details Date Type Department Care Team (Late st Contact Info) Description 07/31/2024 Mobileum Message Enc [facility] Family & Internal Medicine [facility] [address] [place] [address] [facility] Appointment Social History Tobacco Use Types Packs/Day Years [...] st Contact Info) Description 10/12/2024 1:20 PM METALIZING MACHINE 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 [address] [place] [address] 11/28/2024 7:00 AM CDT Office Visit [facility] Family [facility] Internal Medicine [facility] [address] [place] [address] [place] [address] [place], [place] [phone] documented as of this encounter Goals Goal Patient Goal Type Associated Problems Recent Progress Patient-Stated? Author Health - patient able to perform ADLs independently General No Evette Campuzano RN documented as of this encounter Visit Diagnoses Not on filedocumented in this encounter Additional Health Concerns Infection Onset Date Last Indicated Resolved Time COVID-19 Rule Out 09/21/2024 09/21/2024 09/21/2024 7:37 AM METALIZING MACHINE OPERATOR Assessment Noted Time PHQ-9 Depression Total Score: 16 024 8:11 AM CDT documented as of this encounter Care Teams Layout Technician Relationship Specialty [place] [address] [place], [place] [id number] PCP - General Physician Security Field Supervisor Medical 12/14/23 Theresa Prescott MD [address] [facility] [address] [place] [address] RHEUMATOLOGY 10/17/22 Michel Rush MD [facility]. [address] [place] [address] Consulting Physician CARDIOVASCULAR DISEASE 10/17/22 documented as of this encounter
--- OUTSIDE RECORDS SUMMARY | 2024-10-07 08:50 | XMS_ITS | Patient Health Summary ---
Author Organization [facility] Address [address] [place] [address] Care Team Providers Care Printed Circuit Boards Plasma Etcher Name Role Phone Diaz Keane MD Primary Care Provider [phone] Note from [facility],non-owned Affiliates and Associated Physician Practices is amultiple site organization consisting of ambulatory clinics and hospital sitesin [place], [place], [place] and [place]. This disclosure is being madepursuant to the Care Everywhere program and may not contain all information available regarding this patient. Last updated 18.[facility] Allergies * Codeine(Nausea and/or Vomiting,Vomiting) -Low Criticality Medications * Be aware that medications may not be up to date on this document. Alwaysverify current medications with the patient. * celecoxib (CELEBREX) 200 MG capsule(Started 04/16/2021) Take 1 (one) capsule by mouth 2 times daily * ferrous sulfate EC 325 (65 Fe) MG tablet(Started 09/01/2021) Take 1 (one) tablet by mouth once daily * pramipexole (MIRAPEX) 0.125 MG tablet(Started 12/12/2021) Take 1 tablet by mouth 4 x's per day. * DULoxetine (CYMBALTA) 60 MG capsule(Started 01/21/2022) Take 1 (one) capsule by mouth once daily * pregabalin (Lyrica) 150 MG capsule(Started 08/12/2022) Take 1 (one) capsule by mouth 2 times daily * ibuprofen (Motrin) 800 MG tablet(Started 08/21/2022) Take 1 (one) tablet by mouth every 8 hours as needed Active Problems No known active problems Social History Tobacco Use Types Packs/Day Years Used Date Smoking Tobacco: Former Cigarettes 2 18 1 973 - 1991 Smokeless Tobacco: Never Tobacco Cessation:Counseling Given: Not Answered Alcohol Use Standard Drinks/Week Comments Never 0 (1 standard drink = 0.6 oz pur e alcohol) Sex and Gender Information Value Date Recorded Sex Assigned at Female 09/01/2022 10:14 AM TAR WORKER Gender Identity Female 09/01/2022 10:14 AM TAR WORKER Sexual Orientation Straight 09/01/2022 10 :14 AM TAR WORKER Last Filed Vital Signs Vital Sign Reading Time Taken Comments Blood Pressure 134/54 09/03/2022 1:04 PM TAR WORKER Pulse 70 09/03/2022 1:04 PM TAR WORKER Temperature 37.2 C (98.9 F) 09/03/2022 1:04 PM TAR WORKER Respiratory Rate - - Oxygen Saturation 100% 09/03/2022 1:04 PM TAR WORKER Inhaled Oxygen Concentration - - Weight 90.7 kg (200 lb) 09/03/2022 1:04 PM TAR WORKER Height 165.1 cm (5' 5 ) 09/03/2022 1:04 PM TAR WORKER Body Mass Index 33.28 09/03/2022 1:04 PM TAR WORKER Procedures * ERYTHROCYTE SEDIMENTATION RATE(Performed 09/03/2022) Performed for Scoliosis, unspecified scoliosis type, unspecified spinal region, Encounter for long-term (current) use of medications, High risk medications (not anticoagulants) long-term use * C-REACTIVE PROTEIN(Performed 09/03/2022) Performed for Scoliosis, unspecified scoliosis type, unspecified spinal region, Encounter for long-term (current) use of medications, High risk medications (not anticoagulants) long-term use * CBC W AUTO DIFFERENTIAL(Performed 09/03/2022) Performed for Scoliosis, unspecified scoliosis type, unspecified spinal region, Encounter for long-term (current) use of medications, High risk medications (not anticoagulants) long-term use * AST BLOOD(Performed 09/03/2022) Performed for Scoliosis, unspecified scoliosis type, unspecified spinal region, Encounter for long-term (current) use of medications, High risk medications (not anticoagulants) long-term use * ALT(Performed 09/03/2022) Performed for Scoliosis, unspecified scoliosis type, unspecified spinal region, Encounter for long-term (current) use of medications, High risk medications (not anticoagulants) long-term use * CREATININE BLOOD(Performed 09/03/2022) Performed for Scoliosis, unspecified scoliosis type, unspecified spinal region, Encounter for long-term (current) use of medications, High risk medications (not anticoagulants) long-term use * BUN(Performed 09/03/2022) Performed for Scoliosis, unspecified scoliosis type, unspecified spinal region, Encounter for long-term (current) use of medications, High risk medications (not anticoagulants) long-term use * URINALYSIS MICROSCOPIC ONLY REFLEXED(Performed 01/21/2022) Performed for Positive DOROTHY (antinuclear antibody), Chondrocalcinosis, Sicca, unspecified type (HCC), Polyarthralgia, Encounter for long-term (current) use of medications * ANCA VASCULITIS PANEL(Performed 01/21/2022) Performed for Positive DOROTHY (antinuclear antibody), Chondrocalcinosis, Sicca, unspecified type (HCC), Polyarthralgia, Encounter for long-term (current) use of medications * LUPUS ANTICOAGULANT PANEL W RFLX(Performed 01/21/2022) Performed for Positive DOROTHY (antinuclear antibody), Chondrocalcinosis, Sicca, unspecified type (HCC), Polyarthralgia, Encounter for long-term (current) use of medications * BETA-2 GLYCOPROTEIN 1 ANTIBODY IGG/IGM PANEL(Performed 01/21/2022) Performed for Positive DOROTHY (antinuclear antibody), Chondrocalcinosis, Sicca, unspecified type (HCC), Polyarthralgia, Encounter for long-term (current) use of medications * CARDIOLIPIN ANTIBODY IGG/IGM PANEL(Performed 01/21/2022) Performed for Positive DOROTHY (antinuclear antibody), Chondrocalcinosis, Sicca, unspecified type (HCC), Polyarthralgia, Encounter for long-term (current) use of medications * URINALYSIS REFLEX MICROSCOPIC REFLEX CULTURE(Performed 01/21/2022) Performed for Positive DOROTHY (antinuclear antibody), Chondrocalcinosis, Sicca, unspecified type (HCC), Polyarthralgia, Encounter for long-term (current) use of medications * COMPLEMENT C3 C4 PANEL(Performed 01/21/2022) Performed for Positive DOROTHY (antinuclear antibody), Chondrocalcinosis, Sicca, unspecified type (HCC), Polyarthralgia, Encounter for long-term (current) use of medications * DOROTHY COMPREHENSIVE PLUS PROFILE(Performed 01/21/2022) Performed for Positive DOROTHY (antinuclear antibody), Chondrocalcinosis, Sicca, unspecified type (HCC), Polyarthralgia, Encounter for long-term (current) use of medications * DOROTHY BLOOD SCREEN W/REFLEX TITER(Performed 01/21/2022) Performed for Positive DOROTHY (antinuclear antibody), Chondrocalcinosis, Sicca, unspecified type (HCC), Polyarthralgia, Encounter for long-term (current) use of medications * CULTURE URINE(Performed 01/21/2022) Performed for Positive DOROTHY (antinuclear antibody), Chondrocalcinosis, Sicca, unspecified type (HCC), Polyarthralgia, Encounter for long-term (current) use of medications Results * (ABNORMAL) C-REACTIVE PROTEIN (09/03/2022 1:59 PM TAR WORKER) C-Reactive Protein 1.97(H) <=0.50 mg/dL [facility] INSURANCE BILL Blood BLOOD SPECIMEN / Unknown 09/03/2022 1:59 PM TAR WORKER 09/03/2022 Narrative Resulting Agency Comment Lab Testing performed at: [address] [phone] Theresa Prescott MD LAB - CHEMISTRY OR DERABLES Performing Organization Address [facility] de Phone Number [facility] INSURANCE BILL [address] [place] [address] * ERYTHROCYTE SEDIMENTATION RATE (09/03/2022 1:59 PM TAR WORKER) Erythrocyte Sedimentation Rate Westergren 15 0 - 30 MM/HR [facility] INSURANCE BILL Blood BLOOD SPECIMEN / Unknown 09/03/2022 1:59 PM TAR WORKER 09/03/2022 Narrative Resulting Agency Comment Lab Testing performed at: [address] [phone] Theresa Prescott MD LAB - HEMATOLOGY O RDERABLES Performing Organization Address [facility]/ZIP Co de Phone Number [facility] INSURANCE BILL [address] [place] [address] * (ABNORMAL) CBC WITH DIFFERENTIAL (09/03/2022 1:59 PM TAR WORKER) WBC 9.0 4.4 - 10.7 x10E9/L [facility] INSURANCE BILL RBC 4.89 3.80 - 5.20 x10E12/L [facility] INSURANCE BILL Hemoglobin 13.0 12.0 - 15.6 gm/dL [facility] INSURANCE BILL Hematocrit 42.9 35.9 - 45.5 % [facility] INSURANCE BILL MCV 87.7 80.7 - 98.3 fl [facility] INSURANCE BILL MCH 26.6(L) 26.7 - 34.0 pg [facility] INSURANCE BILL MCHC 30.3(L) 30.8 - 35.9 gm/dL [facility] INSURANCE BILL RDW 15.2(H) 12.1 - 14.9 % [facility] INSURANCE BILL Platelet Count 366 153 - 416 x10E9/L [facility] INSURANCE BILL Comment:MPV FL BLOOD (SSM) 1 1.1 fl 9.4-12.9 Granulocytes % 55.2 44.0 - 73.0 % [facility] INSURANCE BILL Lymphocytes % 32.1 20.0 - 43.0 % [facility] INSURANCE BILL Monocytes % 9.2 5.0 - 13.0 % [facility] INSURANCE BILL Eosinophils % 2.8 0.0 - 6.0 % [facility] INSURANCE BILL Basophils % 0.4 0.0 - 2.0 % [facility] INSURANCE BILL Granulocytes Absolute 4.95 2.01 - 7.14 x10E9/L [facility] INSURANCE BILL Lymphocytes Absolute 2.88 1.07 - 3.94 x10E9/L [facility] INSURANCE BILL Monocytes Absolute 0.83 0.26 - 1.07 x10E9/L [facility] INSURANCE BILL Eosinophils Absolute 0.25 0 - 0.47 x10E9/L [facility] INSURANCE BILL Basophils Absolute 0.04 0 - 0.08 x10E9/L [facility] INSURANCE BILL Immature Granulocytes 0.3 0 - 1 % [facility] INSURANCE BILL Immature Granulocytes Absolute 0.03 0.00 - 0.06 x10E9/L [facility] INSURANCE BILL nRBC 0 /100 WBC [facility] INSURANCE BILL Blood BLOOD SPECIMEN / Unknown 09/03/2022 1:59 PM TAR WORKER 09/03/2022 Narrative Resulting Agency Comment Lab Testing performed at: [address] [phone] Theresa Prescott MD LAB - HEMATOLOGY O RDERABLES Performing Organization Address City/[facility]/ZIP Co de Phone Number [facility] INSURANCE BILL [address] [place] [address] * ALT (09/03/2022 1:59 PM TAR WORKER) ALT 13 0 - 61 U/L [facility] INSURANCE BILL Blood BLOOD SPECIMEN / Unknown 09/03/2022 1:59 PM TAR WORKER 09/03/2022 Narrative Resulting Agency Comment Lab Testing performed at: [address] [phone] Theresa Prescott MD LAB - CHEMISTRY OR DERABLES Performing Organization Address City/[facility]/ZIP Co de Phone Number [facility] INSURANCE BILL [address] [place] [address] * AST BLOOD (09/03/2022 1:59 PM TAR WORKER) AST 15 5 - 34 U/L [facility] INSURANCE BILL Blood BLOOD SPECIMEN / Unknown 09/03/2022 1:59 PM TAR WORKER 09/03/2022 Narrative Resulting Agency Comment Lab Testing performed at: [address] [id number] Theresa Prescott MD LAB - CHEMISTRY OR DERABLES Performing Organization Address City/[facility]/ZIP Co de Phone Number [facility] INSURANCE BILL [address] [place] [address] * CREATININE BLOOD (09/03/2022 1:59 PM TAR WORKER) Creatinine 0.68 0.57 - 1.11 mg/dL [facility] INSURANCE BILL eGFR by CKD-EPI >90 >=90 mL/min/1.7 3 m2 [facility] INSURANCE BILL Blood BLOOD SPECIMEN / Unknown 09/03/2022 1:59 PM TAR WORKER 09/03/2022 Narrative Resulting Agency Comment Lab Testing performed at: [address] [id number] Theresa Prescott MD LAB - CHEMISTRY OR DERABLES [facility] INSURANCE BILL [address] [place] [address] * BUN (09/03/2022 1:59 PM TAR WORKER) Pathologist [facility] BUN 16 9.8 - 20.1 mg/dL [facility] INSURANCE BILL Blood BLOOD SPECIMEN / Unknown 09/03/2022 1:59 PM TAR WORKER 09/03/2022 Narrative Resulting Agency Comment Lab Testing performed at: [address] [phone] Theresa Prescott MD LAB - CHEMISTRY OR DERABLES Performing Organization Address City/[facility]/ZIP Co de Phone Number [facility] INSURANCE BILL [address] [place] [address] * (ABNORMAL) URINALYSIS MICROSCOPIC ONLY REFLEXED (01/21/2022 12:59 PM CDT) [facility] WBC UA 6-10(A) 0 - 5 /hpf [facility] INSURANCE BILL RBC UA None seen 0 - 2 /hpf [facility] INSURANCE BILL Epithelial Cells (non renal) 0-10 0 - 10 /hpf [facility] INSURANCE BILL Epithelial Cells (renal) NOT NEEDED [facility] INSURANCE BILL Comment:Ancillary determined the test is not needed. Casts ua None seen None seen /lpf [facility] INSURANCE BILL Casts UA NOT NEEDED [facility] INSURANCE BILL Comment:Ancillary determined the test is not needed. Crystals UA NOT NEEDED [facility] INSURANCE BILL Comment:Ancillary determined the test is not needed. Crystals UA NOT NEEDED [facility] INSURANCE BILL Comment:Ancillary determined the test is not needed. Mucus UA NOT NEEDED [facility] INSURANCE BILL Comment:Ancillary determined the test is not needed. Bacteria UA None seen None seen/Few [facility] INSURANCE BILL Yeast UA NOT NEEDED [facility] INSURANCE BILL Comment:Ancillary determined the test is not needed. Trichomonas UA NOT NEEDED [facility] INSURANCE BILL Comment:Ancillary determined the test is not needed. Comment Urine NOT NEEDED [facility] INSURANCE BILL Comment:Ancillary determined the test is not needed. 01/21/2022 12:5 9 PM CDT 01/21/2022 Narrative Resulting Agency Comment Lab Testing performed at: [facility] [address] [id number] Theresa Prescott MD LAB - URINALYSIS O RDERABLES [facility] INSURANCE BILL [address] [place] [address] * DOROTHY COMPREHENSIVE PLUS PROFILE (01/21/2022 12:59 PM CDT) Anti-dsDNA Quantitative <1 0 - 9 IU/mL [facility] INSURANCE BILL Comment: Negative <5 Equivocal 5 - 9 Positive >9 BAND SAW RUNNER Antibody <0.2 0.0 - 0.9 AI [facility] INSURANCE BILL Wong (XIANG) Antibody <0.2 0.0 - 0.9 AI [facility] INSURANCE BILL Wong/BAND SAW RUNNER Antibodies <0.2 0.0 - 0.9 AI [facility] INSURANCE BILL Antiscleroderma-70 Antibody <0.2 0.0 - 0.9 AI [facility] INSURANCE BILL Sjogren's Antibodies (SSA) <0.2 0.0 - 0.9 AI [facility] INSURANCE BILL Sjogren's Antibodies (SSB) <0.2 0.0 - 0.9 AI [facility] INSURANCE BILL Antichromatin Antibodies <0.2 0.0 - 0.9 AI [facility] INSURANCE BILL Antiribosomal P Antibody <0.2 0.0 - 0.9 AI [facility] INSURANCE BILL Loren-1 Antibody <0.2 0.0 - 0.9 AI [facility] INSURANCE BILL Centromere B Antibody <0.2 0.0 - 0.9 AI [facility] INSURANCE BILL See Below [facility] INSURANCE BILL Comment: Autoantibody Disease Association Condition Frequency Antinuclear Antibody, SLE, mixed connective Direct (DOROTHY-D) tissue diseases dsDNA SLE 40 - 60% Chromatin Drug induced SLE 90% SLE 48 - 97% SSA (Ro) SLE 25 - 35% Sjogren's Syndrome 40 - 70% Lupus 100% SSB (La) SLE 10% Sjogren's Syndrome 30% Sm (anti-Wong) SLE 15 - 30% BAND SAW RUNNER Mixed Connective Tissue Disease 95% (U1 nRNP, SLE 30 - 50% anti-ribonucleoprotein) Polymyositis and/or Dermatomyositis 20% Scl-70 (antiDNA Scleroderma (diffuse) 20 - 35% topoisomerase) Crest 13% Loren-1 Polymyositis and/or Dermatomyositis 20 - 40% Centromere B Scleroderma - Crest variant 80% Ribosomal P SLE 10 - 20% Blood BLOOD SPECIMEN / Unknown 01/21/2022 12:59 PM CDT 01/21/2022 Narrative Resulting Agency Comment Lab Testing performed at: [facility] [address] [id number] Theresa Prescott MD LAB - CHEMISTRY OR DERABLES [facility] INSURANCE BILL [address] [place] [address] * (ABNORMAL) URINALYSIS REFLEX MICROSCOPIC REFLEX CULTURE (01/21/2022 12:59 PM CDT) Specific Archbald UA 1.024 1.005 - 1.030 [facility] INSURANCE BILL pH UA 6.5 5.0 - 7.5 [facility] INSURANCE BILL Color UA Yellow Yellow [facility] INSURANCE BILL Appearance Clear Clear [facility] INSURANCE BILL Leukocyte UA 1+(A) Negative [facility] INSURANCE BILL Protein UA Negative Negative/Tra ce [facility] INSURANCE BILL Glucose UA Negative Negative [facility] INSURANCE BILL Ketone UA Negative Negative [facility] INSURANCE BILL Occult Blood Urine Negative Negative [facility] INSURANCE BILL Bilirubin UA Negative Negative [facility] INSURANCE BILL Urobilinogen 0.2 0.2 - 1.0 mg/dL [facility] INSURANCE BILL Nitrite UA Negative Negative [facility] INSURANCE BILL Microscopic Examination Urine See below: [facility] INSURANCE BILL Comment:Microscopic was alyce cated and was performed. Microscopic Examination Urine NOT NEEDED [facility] INSURANCE BILL Comment:Ancillary determined the test is not needed. Urinalysis Reflex [facility] INSURANCE BILL Comment:This specimen has re flexed to a Urine Culture. Urine URINE SPECIMEN OBTAINED BY CLEAN CATCH PROCEDURE / Unknown 01/21/2022 12:59 PM CDT 01/21/2022 Narrative Resulting Agency Comment Lab Testing performed at: [facility] [address] [id number] Theresa Prescott MD LAB - URINALYSIS O RDERABLES [facility] INSURANCE BILL [address] [place] [address] * ANCA VASCULITIS PANEL (01/21/2022 12:59 PM CDT) Anti-myeloperoxidase (MPO) Antibody <9.0 0.0 - 9.0 U/mL [facility] INSURANCE BILL Comment: Effective January 27, 2022 Antimyeloperoxidase (MPO) Abs will be made non-orderable. Existing profiles containing this component will be made non-orderable. [facility] [id number] Anti-MPO Antibodies beginning January 26, 2022. Anti-proteinase 3 (DC-3) Abs <3.5 0.0 - 3.5 U/mL [facility] INSURANCE BILL Comment: Effective February 09, 2022 Antiproteinase 3 (DC-3) Abs will be made non-orderable. Existing profiles containing this component will be made non-orderable. [facility] [id number] Anti-PR3 Antibodies beginning January 26, 2022. Cytoplasmic (C-ANCA) <1:20 Neg:<1:20 titer [facility] INSURANCE BILL p-ANCA Titer <1:20 Neg:<1:20 titer [facility] INSURANCE BILL Comment: The presence of positive fluorescence exhibiting P-ANCA or C-ANCA patterns alone is not specific for the diagnosis of Samina's Granulomatosis (WG) or microscopic polyangiitis. Decisions about treatment should not be based solely on ANCA IFA results. The International ANCA Group Consensus recommends follow up testing of positive sera with both DC-3 and MPO-ANCA enzyme immunoassays. As many as 5% serum samples are positive only by EIA. Ref. AM J Clin Pathol 1999;111:507-513. Atypical p-ANCA Titer <1:20 Neg:<1:20 titer [facility] INSURANCE B[facility] Comment: The atypical pANCA pattern has been observed in a significant percentage of patients with ulcerative colitis, primary sclerosing cholangitis and autoimmune hepatitis. Blood BLOOD SPECIMEN / Unknown 01/21/2022 12:59 PM CDT 01/21/2022 Narrative Resulting Agency Comment Lab Testing performed at: [facility] [id number] Theresa Prescott MD LAB - CHEMISTRY OR DERABLES Performing Organization Address [facility] de Phone Number [facility] [address] [place] [address] * CARDIOLIPIN ANTIBODY IGG/IGM PANEL (01/21/2022 12:59 PM CDT) Cardiolipin Antibody IgG <9 0 - 14 GPL U/mL [facility] INSURANCE BILL Comment: Negative: <15 Indeterminate: 15 - 20 Low-Med Positive: >20 - 80 High Positive: >80 Cardiolipin Antibody IgM <9 0 - 12 MPL U/mL [facility] INSURANCE BILL Comment: Negative: <13 Indeterminate: 13 - 20 Low-Med Positive: >20 - 80 High Positive: >80 Blood BLOOD SPECIMEN / Unknown 01/21/2022 12:59 PM CDT 01/21/2022 Narrative Resulting Agency Comment Lab Testing performed at: [facility] [place] [address] [id number] Theresa Prescott MD LAB - SEROLOGY ORD ERABLES Performing Organization Address [facility] de Phone Number [facility] INSURANCE BILL [address] [place] [address] * LUPUS ANTICOAGULANT PANEL W RFLX (01/21/2022 12:59 PM CDT) Pathologist [facility] PTT-LA 34.1 0.0 - 51.9 sec [facility] INSURANCE BILL dRVVT 36.4 0.0 - 47.0 sec [facility] INSURANCE BILL Interpretation Comment: [facility] INSURANCE B[facility] Comment:No lupus anticoagula nt was detected. Blood BLOOD SPECIMEN / Unknown 01/21/2022 12:59 PM CDT 01/21/2022 Narrative Resulting Agency Comment Lab Testing performed at: [facility] [id number] Theresa Prescott MD LAB - HEMATOLOGY O RDERABLES Performing Organization Address [facility]/ZIP Co de Phone Number [facility] INSURANCE BILL [address] [place] [address] * DOROTHY BLOOD SCREEN W/REFLEX TITER (01/21/2022 12:59 PM CDT) [facility] DOROTHY Negative [facility] INSURANCE BILL Comment: Negative <1:80 Borderline 1:80 Positive >1:80 ICAP nomenclature: AC-0 For more information about Hep-2 cell patterns use ANApatterns.org, the official website for the International Consensus on Antinuclear Antibody (DOROTHY) Patterns (ICAP). Blood BLOOD SPECIMEN / Unknown 01/21/2022 12:59 PM CDT 01/21/2022 Narrative Resulting Agency Comment Lab Testing performed at: [facility] [address] [id number] Theresa Prescott MD LAB - CHEMISTRY OR DERABLES [facility] INSURANCE BILL [address] [place] [address] * BETA-2 GLYCOPROTEIN 1 ANTIBODY IGG/IGM PANEL (01/21/2022 12:59 PM CDT) [facility] Beta-2 Glycoprotein I Antibody IgG <9 0 - 20 GPI IgG units [facility] INSURANCE BILL Comment: The reference interval reflects a 3SD or 99th percentile interval, which is thought to represent a potentially clinically significant result in accordance with the International Consensus Statement on the classification criteria for definitive antiphospholipid syndrome (APS). J Thromb Haem 2006;4:295-306. Beta-2 Glycoprotein I Antibody IgM <9 0 - 32 GPI IgM units [facility] INSURANCE BILL Comment: The reference interval reflects a 3SD or 99th percentile interval, which is thought to represent a potentially clinically significant result in accordance with the International Consensus Statement on the classification criteria for definitive antiphospholipid syndrome (APS). J Thromb Haem 2006;4:295-306. Blood BLOOD SPECIMEN / Unknown 01/21/2022 12:59 PM CDT 01/21/2022 Narrative Resulting Agency Comment Lab Testing performed at: [facility] [address] [id number] Theresa Prescott MD LAB - CHEMISTRY OR DERABLES Performing Organization Address [facility] Co de Phone Number [facility] INSURANCE BILL [address] [place] [address] * CULTURE URINE (01/21/2022 12:59 PM CDT) Urine Culture Routine Final report [facility] INSURANCE BILL Result 1 [facility] INSURANCE BILL Comment: Mixed urogenital disha 10,000-25,000 colony forming units per mL 01/21/2022 12:5 9 PM CDT 01/21/2022 Narrative Resulting Agency Comment Lab Testing performed at: [facility] [place] [address] [id number] Theresa Prescott MD LAB - MICROBIOLOGY ORDERABLES Performing Organization Address City/[facility]/ZIP Co de Phone Number [facility] INSURANCE BILL [address] [place] [address] * COMPLEMENT C3 C4 PANEL (01/21/2022 12:59 PM CDT) Complement C3 160 82 - 167 mg/dL [facility] INSURANCE BILL Complement C4 22 12 - 38 mg/dL [facility] INSURANCE BILL Blood BLOOD SPECIMEN / Unknown 01/21/2022 12:59 PM CDT 01/21/2022 Narrative Resulting Agency Comment Lab Testing performed at: [facility] [place] [address] [id number] Theresa Prescott MD LAB - CHEMISTRY OR DERABLES [facility] INSURANCE BILL [address] [place] [address] Care Teams [employer] Plasma Etcher Relationship Specialty [place] [address] [place] [address] PCP - General Family Medicine 11/12/21
--- OUTSIDE RECORDS SUMMARY | 2024-10-07 08:50 | XMS_ITS | Clinical Summary ---
Author Organization [facility] Address [address] [place] [address] Care Team Providers Care Executive Chef Name Role Phone Diaz Keane MD Primary Care Provider [phone] Source Comments [facility],non-owned Affiliates and Associated Physician Practices is amultiple site organization consisting of ambulatory clinics and hospital sitesin [place], [place], [place] and [place]. This disclosure is being madepursuant to the Care Everywhere program and may not contain all information available regarding this patient. Last updated 18.[facility] Allergies Active Allergy Reactions Criticality Noted Date Comments Codeine Nausea and/or Vomiting,Vomiting Low 01/2018 Reaction: Medications * Be aware that medications may not be up to date on this document. Alwaysverify current medications with the patient. Medication Sig Dispensed Refills Start Date End Date Status celecoxib (CELEBREX) 200 MG capsule Take 1 (one) capsule by mouth 2 times daily 04/16/2021 Active ferrous sulfate EC 325 (65 Fe) MG tablet Take 1 (one) tablet by mouth once daily 09/01/2021 Active pramipexole (MIRAPEX) 0.125 MG tablet Take 1 tablet by mouth 4 x's per day. 12/12/2021 Active DULoxetine (CYMBALTA) 60 MG capsule Take 1 (one) capsule by mouth once daily 90 capsule 01/21/2022 Active Additional Information Patient taking differently: 600 mgOral DAILY, Reported on 09/03/2022 pregabalin (Lyrica) 150 MG capsule Take 1 (one) capsule by mouth 2 times daily 08/12/2022 Active ibuprofen (Motrin) 800 MG tablet Take 1 (one) tablet by mouth every 8 hours as needed 08/21/2022 Active Active Problems No known active problems Family History Medical History Relation Name Comments Cancer Brother Cancer Father Arthritis - Rheumatoid Mother Cancer Mother Crohn's Disease Mother Hypertension Mother Thyroid Disease Mother Relation Name Status Comments Brother Father Mother Social History Tobacco Use Types Packs/Day Years Used Date Smoking Tobacco: Former Cigarettes 2 18 1 973 - 1991 Smokeless Tobacco: Never Tobacco Cessation:Counseling Given: Not Answered Alcohol Use Standard Drinks/Week Comments Never 0 (1 standard drink = 0.6 oz pur e alcohol) Sex and Gender Information Value Date Recorded Sex Assigned at Female 09/01/2022 10:14 AM URANIUM PROCESSING SUPERVISOR Gender Identity Female 09/01/2022 10:14 AM URANIUM PROCESSING SUPERVISOR Sexual Orientation Straight 09/01/2022 10 :14 AM URANIUM PROCESSING SUPERVISOR Last Filed Vital Signs Vital Sign Reading Time Taken Comments Blood Pressure 134/54 09/03/2022 1:04 PM URANIUM PROCESSING SUPERVISOR Pulse 70 09/03/2022 1:04 PM URANIUM PROCESSING SUPERVISOR Temperature 37.2 C (98.9 F) 09/03/2022 1:04 PM URANIUM PROCESSING SUPERVISOR Respiratory Rate - - Oxygen Saturation 100% 09/03/2022 1:04 PM URANIUM PROCESSING SUPERVISOR Inhaled Oxygen Concentration - - Weight 90.7 kg (200 lb) 09/03/2022 1:04 PM URANIUM PROCESSING SUPERVISOR Height 165.1 cm (5' 5 ) 09/03/2022 1:04 PM URANIUM PROCESSING SUPERVISOR Body Mass Index 33.28 09/03/2022 1:04 PM URANIUM PROCESSING SUPERVISOR Plan of Treatment Health Maintenance Due Date Last Done Comments BONE DENSITY TESTING 1955 COLOGUARD (AGES 45-75) - COLON CA SCREENING 1955 COLON MONITORING 1956 COLONOSCOPY - COLON CA SCREENING 1956 CT COLONOGRAPHY - COLON CA SCREENING 1955 Colorectal Cancer Screening 1955 FIT - COLON CA SCREENING 1955 FLEX SIG - COLON CA SCREENING 1955 LIPID TESTING 1955 MAMMOGRAM 1955 HEPATITIS C SCREENING 04/28/1974 DTAP/TDAP/TD VACCINES (1 - Tdap) 1975 PNEUMOCOCCAL VACCINE 50+ (1 of 1 - PCV) 2006 ZOSTER VACCINE (1 of 2) 2006 SCREENING FOR DIABETES 01/21/2022 COVID-19 VACCINE (2023-25 season) 2024 INFLUENZA VACCINE (#1) 2024 3, 06/03/2020, 05/13/2018, Additional history exists DEPRESSION SCREENING 08/16/2024 MEDICARE AWV CALENDAR YEAR 2024 Respiratory Syncytial Virus (RSV) Vaccine Pt: or over 60 yrs (1 - 1-dose 75+ series) 2031 HEPATITIS B VACCINE Aged Out No longe r eligible based on patient's age to complete this topic HIB VACCINE Aged Out No longer eligi ble based on patient's age to complete this topic HPV VACCINE Aged Out No longer eligi ble based on patient's age to complete this topic MENINGOCOCCAL (Group B) VACCINE Aged Out No longer eligible based on patient's age to complete this topic MENINGOCOCCAL VACCINE Aged Out No chuck monika eligible based on patient's age to complete this topic Care Teams Executive Chef Relationship Specialty [place] [address] [address] [place], [place] [id number] PCP - General Family Medicine 11/12/21
--- OUTSIDE RECORDS SUMMARY | 2024-10-07 08:50 | XMS_ITS | Encounter Summary ---
Author Organization [facility] Address [facility] [place] [address] Care Team Providers Care Environmental Intern Name Role Phone Theresa Prescott MD Unavailable [phone] Michel Rush MD Unavailable [phone] Liset Summers APRN Primary Care Provider [phone] Thomas Wick Primary Care Provider [phone] Encounter Details Date Type Department Care Team (Late st Contact Info) Description 09/21/2023 MyCPharmalinkt Message Enc [facility] Family & Internal Medicine [facility] [address] [place] [address] Liset Summers APRN [address] [address] Still have a bad cough Social History Tobacco Use Types Packs/Day Years [...] Date Recorded Patient Health Questionnaire-2 Score 0 09/09/2023 Education Answer Date Recorded What is the [...] st Contact Info) Description 10/12/2024 1:20 PM PROCESS CONTROL SUPERVISOR Office Visit [facility] Family & Internal Medicine [facility] [address] [place] [address] [place] [address] [place] [address] 11/23/2024 11:45 AM CDT Office Visit [place] [facility] [address] [place] [address] Michel Rush MD Three [facility]. [facility] [address] [place], [place] [address] 11/28/2024 7:00 AM CDT Office Visit [facility] Family & Internal Medicine [facility] [address] [place] [address] [place] [address] [place], [place] [id number] documented as of this encounter Goals Goal Patient Goal Type Associated Problems Recent Progress Patient-Stated? Author Health - patient able to perform ADLs independently General No Evette Campuzano RN documented as of this encounter Visit Diagnoses Not on filedocumented in this encounter Additional Health Concerns Infection Onset Date Last Indicated Resolved Time COVID-19 Rule Out 09/21/2024 09/21/2024 09/21/2024 7:37 AM PROCESS CONTROL SUPERVISOR Assessment Noted Time PHQ-9 Depression Total Score: 14 023 11:01 AM PROCESS CONTROL SUPERVISOR documented as of this encounter Care Teams Environmental Intern Relationship Specialty Start Date End Date Liset Summers APRN [address] [facility] [address] [place] [address] PCP - General NURSE PRACTITIONER 05/26/23 12/13/23 [place] [address] [place] [address] PCP - General Physician Pharmaceutical Specialty Representative Medical 12/14/23 Theresa Prescott MD [address] [facility] [address] [place] [address] RHEUMATOLOGY 10/17/22 Michel Rush MD [address] [address] Consulting Physician CARDIOVASCULAR DISEASE 10/17/22 documented as of this encounter
--- OUTSIDE RECORDS SUMMARY | 2024-10-07 08:50 | XMS_ITS | Referral Summary ---
Author Organization [facility] [employer] Address [address] [place] [address] Care Team Providers Care Ordained Minister Name Role Phone Diaz Keane MD Primary Care Provider [phone] Source Comments [facility] [employer],non-owned Affiliates and Associated Physician Practices is amultiple site organization consisting of ambulatory clinics and hospital sitesin [place], [place], [place] and [place]. This disclosure is being madepursuant to the Care Everywhere program and may not contain all information available regarding this patient. Last updated 18.[facility] [employer] Allergies Active Allergy Reactions Criticality Noted Date [...] Active Active Problems No known active problems Social History Tobacco Use Types Packs/Day Years Used Date Smoking Tobacco: Former Cigarettes 2 18 1 973 - 1990 Smokeless Tobacco: Never Tobacco Cessation:Counseling Given: Not Answered Alcohol Use Standard Drinks/Week Comments Never 0 (1 standard drink = 0.6 oz pur e alcohol) Sex and Gender Information Value Date Recorded Sex Assigned at Female 09/01/2022 10:14 AM RADIOLOGY SPECIAL PROCEDURE TECH Gender Identity Female 09/01/2022 10:14 AM RADIOLOGY SPECIAL PROCEDURE TECH Sexual Orientation Straight 09/01/2022 10 :14 AM RADIOLOGY SPECIAL PROCEDURE TECH Last Filed Vital Signs Vital Sign Reading Time Taken Comments Blood Pressure 134/54 09/03/2022 1:04 PM RADIOLOGY SPECIAL PROCEDURE TECH Pulse 70 09/03/2022 1:04 PM RADIOLOGY SPECIAL PROCEDURE TECH Temperature 37.2 C (98.9 F) 09/03/2022 1:04 PM RADIOLOGY SPECIAL PROCEDURE TECH Respiratory Rate - - Oxygen Saturation 100% 09/03/2022 1:04 PM RADIOLOGY SPECIAL PROCEDURE TECH Inhaled Oxygen Concentration - - Weight 90.7 kg (200 lb) 09/03/2022 1:04 PM RADIOLOGY SPECIAL PROCEDURE TECH Height 165.1 cm (5' 5 ) 09/03/2022 1:04 PM RADIOLOGY SPECIAL PROCEDURE TECH Body Mass Index 33.28 09/03/2022 1:04 PM RADIOLOGY SPECIAL PROCEDURE TECH Plan of Treatment Not on file Care Teams Ordained Minister Relationship Specialty [place] [address] [address] [place], [place] [id number] PCP - General Family Medicine 11/12/21
--- OUTSIDE RECORDS SUMMARY | 2024-10-07 08:50 | XMS_ITS | Encounter Summary ---
Author Organization [facility] Address [facility] [place] [address] Care Team Providers Care Telephone Lineman Name Role Phone Theresa Prescott MD Unavailable [phone] Michel Rush MD Unavailable [phone] Thomas Wick Primary Care Provider Encounter Details Date Type Department Care Team (Late st Contact Info) Description 10/06/2024 Siteheartt Message Enc [facility] Medical Group Family & Internal Medicine - [place] [address] [place] [address] [place] [address] [place] [address] Mona Varner Social History Tobacco Use Types Packs/Day Years [...] documented in this encounter Progress Notes * Becky Gardner MA - 10/06/2024 10:50 AM CST Please advise or does she need to be seen? TRY FARM MANAGER documented in this encounter Plan of Treatment Upcoming Encounters Date Type Department Care Team (Late st Contact Info) Description 10/12/2024 1:20 PM POULTRY FARM MANAGER Office Visit [facility] Family & Internal [facility] [address] [place] [address] [place] [address] [place], [place] [address] 11/23/2024 11:45 AM CDT Office Visit [facility] [address] [place] [address] Michel Rush MD Three [facility]. [facility] [address] [place] [address] 11/28/2024 7:00 AM CDT Office Visit [facility] Family & Internal [facility] [address] [place] [address] [place] [address] [place] [address] documented as of this encounter Goals Goal Patient Goal Type Associated Problems Recent Progress Patient-Stated? Author Health - patient able to perform ADLs independently General No Evette Campuzano, RN documented as of this encounter Visit Diagnoses Not on filedocumented in this encounter Additional Health Concerns Assessment Noted Time PHQ-9 Depression Total Score: 14 025 4:42 PM POULTRY FARM MANAGER documented as of this encounter Care Teams Telephone Lineman Relationship Specialty [place] [address] [place] [address] PCP - General Physician Type Casting Machine Operator Medical 12/14/23 Theresa Prescott MD [address] [facility] [address] [place] [address] RHEUMATOLOGY 10/17/22 Michel Rush MD [facility]. [address] [address] Consulting Physician CARDIOVASCULAR DISEASE 10/17/22 documented as of this encounter
--- OUTSIDE RECORDS SUMMARY | 2024-10-07 08:50 | XMS_ITS | Encounter Summary ---
Author Organization [facility] Address [facility] [place] [address] Care Team Providers Care Plumbing Assembler Name Role Phone Theresa Prescott MD Unavailable [phone] Michel Rush MD Unavailable [phone] Thomas Wick Primary Care Provider [phone] Encounter Details Date Type Department Care Team (Late st Contact Info) Description 09/05/2024 eMazeMe Message Enc [facility] Medical Group Family & Internal Medicine [facility] [address] [place] [address] [facility] Provider Blood Pressure Cuff Social History Tobacco Use Types Packs/Day Years [...] st Contact Info) Description 10/12/2024 1:20 PM CHANGE CONTROL ANALYST Office Visit [facility] Medical Group Family & Internal Medicine [facility] [address] [place] [address] [place] [address] [place] [address] 11/23/2024 11:45 AM CDT [facility] [address] [place] [address] Michel Rush MD [facility]. [address] [place] [address] 11/28/2024 7:00 AM CDT Office Visit [facility] Medical Group Family & Internal Medicine [facility] [address] [place] [address] [place] [address] [place] [address] documented as of this encounter Goals Goal Patient Goal Type Associated Problems Recent Progress Patient-Stated? Author Health - patient able to perform ADLs independently General No Evette Campuzano RN documented as of this encounter Visit Diagnoses Not on filedocumented in this encounter Additional Health Concerns Infection Onset Date Last Indicated Resolved Time COVID-19 Rule Out 09/21/2024 09/21/2024 09/21/2024 7:37 AM CHANGE CONTROL ANALYST Assessment Noted Time PHQ-9 Depression Total Score: 14 025 4:42 PM CHANGE CONTROL ANALYST documented as of this encounter Care Teams Plumbing Assembler Relationship Specialty [place] [address] [place], [place] [id number] PCP - General Physician Calciner Operator Medical 12/14/23 Theresa Prescott MD 101[address] [facility] [address] [place] [address] RHEUMATOLOGY 10/17/22 Michel Rush MD [facility]. [address] [place] [address] Consulting Physician CARDIOVASCULAR DISEASE 10/17/22 documented as of this encounter
--- OUTSIDE RECORDS SUMMARY | 2024-10-07 08:50 | XMS_ITS | Encounter Summary ---
Author Organization [facility] Address [address] [place] [address] Care Team Providers Care Skein Yarn Dyer Name Role Phone Theresa Prescott MD Unavailable [phone] Michel Rush MD Unavailable [phone] Thomas Wick Primary Care Provider [phone] Encounter Details Date Type Department Care Team (Late st Contact Info) Description 09/15/2024 FooPets Message Enc [facility] Family & Internal Medicine [facility] [address] [place] [address] [place] [address] [place] [address] Khushbu Varner / 1955 Social History Tobacco Use Types Packs/Day Years [...] documented in this encounter Progress Notes * Jessica Claudio MA - 09/15/2024 7:23 AM CST Please advise, thank you ING WHEEL OPERATOR documented in this encounter Plan of Treatment Upcoming Encounters Date Type Department Care Team (Late st Contact Info) Description 10/12/2024 1:20 PM BURRING WHEEL OPERATOR Office Visit [facility] & Internal [facility] [place] [place] [address] [place] [address] [place] [address] [place] [address] 11/23/2024 11:45 AM CDT Office Visit [facility] [facility] [address] [place] [address] Michel Rush MD [address] [address] 11/28/2024 7:00 AM CDT Office Visit [facility] Family & Internal [facility] [place] [place] [address] [place] [address] [place] [address] [place] [address] documented as of this encounter Goals Goal Patient Goal Type Associated Problems Recent Progress Patient-Stated? Author Health - patient able to perform ADLs independently General No Evette Campuzano RN documented as of this encounter Visit Diagnoses Not on filedocumented in this encounter Additional Health Concerns Infection Onset Date Last Indicated Resolved Time COVID-19 Rule Out 09/21/2024 09/21/2024 09/21/2024 7:37 AM BURRING WHEEL OPERATOR Assessment Noted Time PHQ-9 Depression Total Score: 14 025 4:42 PM BURRING WHEEL OPERATOR documented as of this encounter Care Teams Skein Yarn Dyer Relationship Specialty [place] [address] [place], [place] [phone] PCP - General Physician Floriculture Professor Medical 12/14/23 Theresa Prescott MD [address] [facility] [address] [address] RHEUMATOLOGY 10/17/22 Michel Rush MD [facility]. [facility] [address] [place] [address] Consulting Physician CARDIOVASCULAR DISEASE 10/17/22 documented as of this encounter
--- OUTSIDE RECORDS SUMMARY | 2024-10-07 08:50 | XMS_ITS | Encounter Summary ---
Author Organization [facility] Address [address] [place] [address] Care Team Providers Care Document Preparation Specialist Name Role Phone Therese Anna NP Primary Care Provider [phone] Milagros Hernadez COMPUTER INFORMATION SCIENCE PROFESSOR Unavailable [phone] Milagros Hernadez COMPUTER INFORMATION SCIENCE PROFESSOR Primary Care Provider [phone] Liset Summers COMPUTER INFORMATION SCIENCE PROFESSOR Unavailable [phone] Diaz Keane MD Primary Care Provider [phone] Librado Corea MD Unavailable [phone] Encounter Details Date Type Department Care Team (Late st Contact Info) Description 05/01/2020 Telephone [facility] [address] [place], [place] [id number] Jennifer Quiros, RAFAEL Social History Tobacco Use Types Packs/Day Years [...] on file Legal Sex Female 12:16 AM ADMITTED ATTORNEYS Gender Identity Female 11/07/2022 9:55 AM CDT Sexual Orientation Straight 11/07/2022 9: 55 AM CDT Occupation Industry Job Start Date Job End Date unemployed Not on file Not on file Not on file documented as of this encounter Plan of Treatment Not on file documented as of this encounter Visit Diagnoses Not on filedocumented in this encounter Care Teams Document Preparation Specialist Relationship Specialty [place] [address] [facility] [address] [place] [address] PCP - General Family Practice 11/04/18 02/14/23 [place] [address] [address] PCP - General Nurse Practitioner 02/15/23 12/08/23 [place] [address] [facility] [place] [address] PCP - General Family Practice 12/09/23 [place] [address] [address] Nurse Practitioner Nurse Practitioner 10/07/22 [place] [address] [address] Nurse Practitioner 06/03/23 Librado Corea MD [address] [facility] 6A[address]6B[address]12A [place] [address] Surgeon Orthopedic Surgery 12/23/23 documented as of this encounter
--- OUTSIDE RECORDS SUMMARY | 2024-10-07 08:50 | XMS_ITS | Encounter Summary ---
Author Organization [facility] Address [facility] [place] [address] Care Team Providers Care Sports Administrator Name Role Phone Theresa Prescott MD Unavailable [phone] Michel Rush MD Unavailable [phone] Liset Summers APRN Primary Care Provider [phone] Thomas Wick Primary Care Provider [phone] Encounter Details Date Type Department Care Team (Late st Contact Info) Description 09/07/2023 BountyHuntert Message Enc [facility] Medical Group Family & Internal Medicine [facility] [address] [place] [address] Liset Summers APRN [address] [address] Coughing/Sore throat/blowing nose Social History Tobacco Use Types Packs/Day Years [...] st Contact Info) Description 10/12/2024 1:20 PM COTTON GRADER Office Visit [facility] Medical Group Family & Internal Medicine [facility] [address] [place] [address] [place] [address] [place] [address] 11/23/2024 11:45 AM CDT Office Visit [facility] [facility] [address] [place] [address] Michel Rush MD Three [facility]. [facility] [address] [place], [place] [address] 11/28/2024 7:00 AM CDT Office Visit [facility] Medical Group Family & Internal Medicine [facility] [address] [place] [address] [place] [address] [place] [address] documented as of this encounter Goals Goal Patient Goal Type Associated Problems Recent Progress Patient-Stated? Author Health - patient able to perform ADLs independently General No Evette Campuzano RN documented as of this encounter Visit Diagnoses Not on filedocumented in this encounter Additional Health Concerns Infection Onset Date Last Indicated Resolved Time COVID-19 Rule Out 09/21/2024 09/21/2024 09/21/2024 7:37 AM COTTON GRADER Assessment Noted Time PHQ-9 Depression Total Score: 14 023 11:01 AM COTTON GRADER documented as of this encounter Care Teams Sports Administrator Relationship Specialty Start Date End Date Liset Summers APRN [address] [facility] [address] [place] [address] PCP - General NURSE PRACTITIONER 05/26/23 12/13/23 [place] [address] [place] [address] PCP - General Physician Slitter And Cutter Operator Medical 12/14/23 Theresa Prescott MD 101[address] [facility] [address] [address] RHEUMATOLOGY 10/17/22 Michel Rush MD [address] [address] Consulting Physician CARDIOVASCULAR DISEASE 10/17/22 documented as of this encounter
--- OUTSIDE RECORDS SUMMARY | 2024-10-07 08:50 | XMS_ITS | Encounter Summary ---
Author Organization [facility] Address [facility] [place] [address] Care Team Providers Care Body And Frame Man Name Role Phone Theresa Prescott MD Unavailable [phone] Michel Rush MD Unavailable [phone] Thomas Wick Primary Care Provider [phone] Encounter Details Date Type Department Care Team (Late st Contact Info) Description 09/14/2024 [employer] Message Enc [facility] Family [facility] [address] [place] [address] Thomas Wick [place] [id number] [place] [address] Khushbu Varner : 1955 Social History Tobacco Use Types Packs/Day [...] documented in this encounter Progress Notes * JAIRO Cortes - 09/14/2024 1:16 PM CST Lisinopril sent to [facility]. Continue to monitor and lets see what it is in a month ANDER * Jessica Claudio MA - 09/14/2024 7:29 AM CST FYI ANDER documented in this encounter Plan of Treatment Upcoming Encounters Date Type Department Care Team (Late st Contact Info) Description 10/12/2024 1:20 PM DEBRANDER Office Visit [facility] Family & Internal [facility] [address] [place] [phone] [place] [address] [place], [place] [phone] 11/23/2024 11:45 AM CDT Office Visit [facility] [address] [place] [phone] Michel Rush MD [address] [address] 11/28/2024 7:00 AM CDT Office Visit [facility] Internal [facility] [address] [place] [address] [place] [address] [place], [place] [phone] documented as of this encounter Goals Goal Patient Goal Type Associated Problems Recent Progress Patient-Stated? Author Health - patient able to perform ADLs independently General No Evette Campuzano, RN documented as of this encounter Visit Diagnoses Diagnosis Primary hypertension- Primary Unspecified essential hypertension documented in this encounter Additional Health Concerns Infection Onset Date Last Indicated Resolved Time COVID-19 Rule Out 09/21/2024 09/21/2024 09/21/2024 7:37 AM DEBRANDER Assessment Noted Time PHQ-9 Depression Total Score: 14 025 4:42 PM DEBRANDER documented as of this encounter Care Teams Body And Frame Man Relationship Specialty [place] [address] [place] [address] PCP - General Physician Principal Mechanical Engineer Medical 12/14/23 Theresa Prescott MD [address] [facility] [address] [place] [address] RHEUMATOLOGY 10/17/22 Michel Rush MD Three [facility]. [address] [address] Consulting Physician CARDIOVASCULAR DISEASE 10/17/22 documented as of this encounter
--- OUTSIDE RECORDS SUMMARY | 2024-10-07 08:50 | XMS_ITS | Encounter Summary ---
Author Organization [facility] Address [facility] [place] [address] Care Team Providers Care Chinese Instructor Name Role Phone Theresa Prescott MD Unavailable [phone] Michel Rush MD Unavailable [phone] Thomas Wick Primary Care Provider [phone] Encounter Details Date Type Department Care Team (Late st Contact Info) Description 02/23/2024 [employer] Message Enc [facility] Family & Internal Medicine [facility] [address] [place] [address] Thomas Wick [place] [id number] [place] [address] Rupa Varner 1955 Social History Tobacco Use Types Packs/Day [...] encounter Progress Notes * JAIRO Cortes - 02/23/2024 3:35 PM CDT 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 Walking and sitting are both issues for me. Please let me know ESTEFANIA. 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 Author Health - patient able to perform ADLs independently General No Evette Campuzano RN documented as of this encounter Visit Diagnoses Not on filedocumented in this encounter Additional Health Concerns Infection Onset Date Last Indicated Resolved Time COVID-19 Rule Out 09/21/2024 09/21/2024 09/21/2024 7:37 AM FBI SHARPSHOOTER Assessment Noted Time PHQ-9 Depression Total Score: 16 024 8:11 AM CDT documented as of this encounter Care Teams Chinese Instructor Relationship Specialty [place] [address] [facility] [place] [address] PCP - General Physician Supervisor [employer] Medical 12/14/23 Theresa Prescott MD [address] [place] [address] RHEUMATOLOGY 10/17/22 Michel Rush MD Three [facility]. [address] [place] [address] Consulting Physician CARDIOVASCULAR DISEASE 10/17/22 documented as of this encounter
--- OUTSIDE RECORDS SUMMARY | 2024-10-07 08:50 | XMS_ITS | Encounter Summary ---
Author Organization [facility] Address [facility] [place] [address] Care Team Providers Care Legal Office Administrator Name Role Phone Theresa Prescott MD Unavailable [phone] Michel Ruhs MD Unavailable [phone] Thomas Wick Primary Care Provider [phone] Encounter Details Date Type Department Care Team (Late st Contact Info) Description 02/11/2024 [employer] Message Enc [facility] Family & Internal Medicine [facility] [address] [place] [address] Thomas Wick [place] [id number] [place] [address] Khushbu Varner 1955 Social History Tobacco Use Types [...] st Contact Info) Description 10/12/2024 1:20 PM [employer]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 [address] [place] [address] 11/28/2024 7:00 AM CDT Office Visit [facility] Family & Internal Medicine - [place] [address] [place] [address] [place] [address] [place], [place] [phone] documented as of this encounter Goals Goal Patient Goal Type Associated Problems Recent Progress Patient-Stated? Author Health - patient able to perform ADLs independently General No Evette Campuzano RN documented as of this encounter Visit Diagnoses Not on filedocumented in this encounter Additional Health Concerns Infection Onset Date Last Indicated Resolved Time COVID-19 Rule Out 09/21/2024 09/21/2024 09/21/2024 7:37 AM [employer]INE[employer] Assessment Noted Time PHQ-9 Depression Total Score: 16 024 8:11 AM CDT documented as of this encounter Care Teams Legal Office Administrator Relationship Specialty [place] [address] [place] [address] PCP - General Physician Senior [employer] Soa Developer Medical 12/14/23 Theresa Prescott MD [address] [facility] [address] [phone] RHEUMATOLOGY 10/17/[address] [facility]. [address] [address] Consulting Physician CARDIOVASCULAR DISEASE 10/17/22 documented as of this encounter
[2024-10-07 08:58] VITALS: BP 152/44; PULSE 75; RESP 18; TEMP 36; O2SAT 97
--- NOTE | 2024-10-07 08:59 | ED_ITS ---
HPI - URI/Sore Throat General Chief Complaint: Upper Respiratory Infection Stated Complaint: coughing Source: patient and RN notes reviewed Mode of arrival: ambulatory Limitations: no limitations History of Present Illness HPI Narrative: 69-year-old female presented for complaint of headache, body aches, sinus pressure/congestion, cough, fever/chills. Onset 2 days. with influenza. Denies sob, wheezing, n/v/d. MD elicited complaint: cough Related Data Home Medications ?Medication ?Instructions ?Recorded ?Confirmed ?Last Taken ?Type alendronate 70 mg tablet mg PO 10/07/24 Unknown History atorvastatin 40 mg tablet mg 10/07/24 Unknown History Allergies Allergy/AdvReac Type Severity Reaction Status Date / Time codeine AdvReac Intermediate Nausea and Verified 10/07/24 09:15 Vomiting Review of Systems Review of Systems: CONSTITUTIONAL: Endorses malaise, chills, sweats, fever EYES: Denies visual changes, redness, or discharge ENT: Reports rhinorrhea, congestion, sinus pain, otalgia, sore throat CARDIOVASCULAR: Denies chest pain, palpitations, edema RESPIRATORY: Reports cough, post nasal drainage. Denies dyspnea GASTROINTESTINAL: Denies abdominal pain, nausea, vomiting, diarrhea SKIN: Denies rash or itching MUSCULOSKELETAL: Endorses myalgia NEUROLOGIC: Denies headache [facility] Past Medical History Medical History (Updated 10/07/24 @ 09:27 by Deya Costello, SHALINI) COPD (chronic obstructive pulmonary disease) Exam Narrative: GENERAL: Mildly Ill-appearing, nontoxic no acute distress. EYES: PERRLA, conjunctivae clear ENT: Mucous membranes moist. TM pearly lala with dull light reflex bilaterally; no tragal tenderness. Oropharynx not erythematous without lesions or exudate, no drooling, no hoarseness, no trismus, uvula midline. No tripod positioning, muffled voice, soft palate or pharyngeal wall bulging NECK: Supple. No lymphadenopathy CHEST: Clear to auscultation, breath sounds equal. No wheezing, rhonchi, rales, or stridor. No respiratory distress, speaks in full sentences. HEART: Regular rate and rhythm. No murmur heard. SKIN: Warm, dry NEURO: Alert and oriented x3. PSYCH: Normal mood and affect Course Course Emergency Course: Patient is aware of diagnosis, understands and agrees to treatment plan. Anticipatory guidance given. Patient agrees to follow-up as directed and is aware of reasons to seek care at the emergency department. Portions of this record may have been created with voice recognition software Level of Care: Express Care Visit Vital Signs Vital signs: Vital Signs Temperature 96.8 F L 10/07/24 08:58 Pulse Rate 75 10/07/24 08:58 Respiratory Rate 18 10/07/24 08:58 Blood Pressure 152/44 H 10/07/24 08:58 Pulse Oximetry 97 10/07/24 08:58 Oxygen Delivery Room Air 10/07/24 08:58 Temperature 96.8 F L 10/07/24 08:58 Pulse Rate 75 10/07/24 08:58 Respiratory Rate 18 10/07/24 08:58 Blood Pressure 152/44 H 10/07/24 08:58 Pulse Oximetry 97 10/07/24 08:58 Oxygen Delivery Room Air 10/07/24 08:58 reviewed MDM - URI/Sore Throat MDM Narrative Medical decision making narrative: Positive flu. Discussed physical exam findings. Advised supportive measures and signs/symptoms to go to the ER. Pt is appropriate for outpt treatment and f/u. Differential Diagnosis Differential diagnosis: Likely upper respiratory infection, sinusitis and viral infection Discharge Plan Discharge Clinical Impression: Influenza Patient Disposition: Home, Self-Care Condition: Stable Instructions: Influenza (ED) Additional Instructions: Influenza positive You should avoid crowds until you are fever free for 24 hours without the use of fever reducing medications, or the symptoms are improved Rest. Drink plenty of fluids. Tylenol 1000mg every 8 hours as needed for pain/fever Flonase spray and Zyrtec (or Claritin/Aruna) for sinus pressure/congestion over the counter Cough syrup may cause drowsiness; avoid driving or take it at night time. Coricidin HBP if you have hypertension Follow up with your primary care provider as needed Go to the ER for worsening symptoms or concerns Patient Language: Portuguese Prescriptions: New methylprednisolone [Medrol (Feliciano)] 4 mg tablets,dose pack See Rx Instructions .ROUTE .COMPLEX Qty: 21 0RF Rx Instructions: orally per package directions No Action atorvastatin 40 mg tablet alendronate 70 mg tablet PO Follow-up/Referrals: Diya,Diaz العلي MD [Primary Care Provider] - Time of Disposition: 09:16
[2024-10-07 09:18] LABS: EDCOVIDSCREEN Negative (Negative); EDINFLUASCREEN Positive (Negative); EDINFLUBSCREEN Negative (Negative)
== END 2024-10-07 09:17 | disposition home or self-care (01) ==
PROVIDERS: Emergency Provider Nurse Practitioner Family; PCP Family Medicine
DX: J10.1 Influenza due to other identified influenza virus with other respiratory manifestations (principal); Z20.822 Contact with and (suspected) exposure to COVID-19; J44.9 Chronic obstructive pulmonary disease, unspecified
CPT/HCPCS: 87426; 87804; 99203; G0463